=== PATIENT | male | born 1940 | race Two or more races ===

== ENCOUNTER → 2017-08-29 | Outpatient (CLI) | payer OTHER ==
[2017-08-29 09:02] LABS: Urine WBC None Seen /hpf (0 - 3)
[2017-08-29 09:15] LABS: Basophils # (auto) 0.1 uL; Basophils % (auto) 1.7 % (0.0-2.0); Eosinophils # (auto) 0.7 uL; Hematocrit 35.4 % (41.0-53.0); Hemoglobin 12.1 g/dL (13.5-17.5); Lymphocytes # (auto) 2.7 uL; Lymphocytes % (auto) 41.2 % (10.0-50.0); Mean Corpuscular Hgb Conc. 34.3 g/dL (32.0-36.0); Mean Corpuscular Volume 93.1 fL (80.0-100.0); Monocytes # (auto) 0.2 uL; Monocytes % (auto) 3.2 % (0.0-12.0); Neutrophils # (auto) 2.8 uL; Neutrophils % (auto) 42.9 % (37.0-80.0); Nucleated Red Blood Cells % 0.1 %; Platelet Count (auto) 201 10^3/uL (140-450); Red Cell Distribution Width 13.8 % (11.8-14.3); Urine Bacteria NONE SEEN /hpf (None Seen); Urine Blood Negative /uL (Negative); Urine Mucus FEW (None Seen); White Blood Cell 6.6 10^3/uL (4.4-10.8)
[2017-08-29 09:56] LABS: Alanine Aminotransferase 21 U/L (16-61); Alkaline Phosphatase 149 U/L (45-117); Anion Gap 8 (5-15); Aspartate Aminotransferase 11 U/L (15-37); BUN/Creatinine Ratio 13.9; Bilirubin, Total 0.9 mg/dL (0.2-1.0); Blood Urea Nitrogen 34 mg/dL (7-18); Calcium 9.3 mg/dL (8.5-10.1); Carbon Dioxide 26 mmol/L (21-32); Chloride 105 mmol/L (98-107); Cholesterol 358 mg/dL (< 200); GFR African American 33 mL/min; GFR Non-African American 28 mL/min; Glucose 117 mg/dL (74-106); HDL Cholesterol 46 mg/dL (40-59); Potassium 4.5 mmol/L (3.5-5.1); Sodium 139 mmol/L (136-145); Triglycerides 409 mg/dL (< 150)
== END | disposition home or self-care (01) ==
LOC: LAB 08:49
PROVIDERS: ATTEND Family Medicine
DX: E78.5 Hyperlipidemia, unspecified (principal)
CPT/HCPCS: 36415; 80053; 80061; 81001; 83036; 85025

== ENCOUNTER → 2017-09-26 | Outpatient (CLI) | payer OTHER ==
[2017-09-26 12:57] LABS: Basophils # (auto) 0 uL; Basophils % (auto) 0.7 % (0.0-2.0); Eosinophils # (auto) 0.3 uL; Eosinophils % (auto) 6.6 % (0.0-7.0); Hematocrit 33.5 % (41.0-53.0); Hemoglobin 11.3 g/dL (13.5-17.5); Lymphocytes # (auto) 1.4 uL; Lymphocytes % (auto) 35.7 % (10.0-50.0); Mean Corpuscular Hgb Conc. 33.6 g/dL (32.0-36.0); Mean Corpuscular Volume 92.1 fL (80.0-100.0); Monocytes # (auto) 0.2 uL; Monocytes % (auto) 4.4 % (0.0-12.0); Neutrophils % (auto) 52.6 % (37.0-80.0); Nucleated Red Blood Cells % 0.1 %; Platelet Count (auto) 215 10^3/uL (140-450); Red Blood Cells 3.64 10^6/uL (4.5-5.90); Red Cell Distribution Width 14.2 % (11.8-14.3); White Blood Cell 3.8 10^3/uL (4.4-10.8)
[2017-09-26 13:22] LABS: Albumin 3.9 g/dL (3.4-5.0); Potassium 4.3 mmol/L (3.5-5.1)
[2017-09-26 13:24] LABS: Bilirubin, Total 0.7 mg/dL (0.2-1.0); Total Protein 7.8 g/dL (6.4-8.2)
== END | disposition home or self-care (01) ==
LOC: LAB 11:47
PROVIDERS: ATTEND Nurse Practitioner
DX: E78.5 Hyperlipidemia, unspecified (principal); E86.0 Dehydration
CPT/HCPCS: 36415; 80053; 85025

== ENCOUNTER → 2018-03-15 | Outpatient (CLI) | payer OTHER ==
[~2018-03-15] MED LIST: AMLO10TA2 PO; ATOR20TA PO; LISI-285 PO; METO-158 PO; VENL75TA PO
[2018-03-15 09:33] LABS: Basophils # (auto) 0 uL; Basophils % (auto) 0.8 % (0.0-2.0); Eosinophils # (auto) 0.5 uL; Eosinophils % (auto) 12.2 % (0.0-7.0); Hematocrit 32.9 % (41.0-53.0); Hemoglobin 11.1 g/dL (13.5-17.5); Lymphocytes # (auto) 1.3 uL; Lymphocytes % (auto) 32.3 % (10.0-50.0); Mean Corpuscular Hemoglobin 31.1 pg (28.0-32.0); Mean Corpuscular Hgb Conc. 33.7 g/dL (32.0-36.0); Mean Corpuscular Volume 92.2 fL (80.0-100.0); Monocytes # (auto) 0.2 uL; Monocytes % (auto) 4.4 % (0.0-12.0); Neutrophils % (auto) 50.3 % (37.0-80.0); Nucleated Red Blood Cells % 0.1 %; Platelet Count (auto) 242 10^3/uL (140-450); Red Blood Cells 3.56 10^6/uL (4.5-5.90)
[2018-03-15 10:11] LABS: Albumin 3.5 g/dL (3.4-5.0); BUN/Creatinine Ratio 9.2; Bilirubin, Total 0.9 mg/dL (0.2-1.0); Calcium 8.7 mg/dL (8.5-10.1); Potassium 3.7 mmol/L (3.5-5.1); Total Protein 7.3 g/dL (6.4-8.2)
== END | disposition home or self-care (01) ==
LOC: LAB 09:10
PROVIDERS: ATTEND Nurse Practitioner
DX: E78.5 Hyperlipidemia, unspecified (principal)
CPT/HCPCS: 36415; 80053; 80061; 82306; 85025

== ENCOUNTER → 2018-05-04 | Outpatient (CLI) | payer OTHER ==
[~2018-05-04] MED LIST changes: +AMLO10TA12 PO; -AMLO10TA2 PO
== END | disposition home or self-care (01) ==
LOC: XY 11:10
PROVIDERS: ATTEND Nurse Practitioner
DX: I73.9 Peripheral vascular disease, unspecified (principal)
CPT/HCPCS: 93925

== ENCOUNTER 2018-05-20 07:03 | Inpatient (IN) | payer OTHER ==
[~2018-05-20] VITALS: Ht 177.8 cm; Wt 63.8 kg
[2018-05-20] MEDS ORDERED: FUROSEMIDE 20 MG/2 ML VIAL IV ONE ×2 (07:45→10:00)
[2018-05-20 08:00] LABS: Urine Bacteria FEW /hpf (None Seen); Urine Blood Negative /uL (Negative); Urine Mucus FEW (None Seen); Urine Specific Gravity 1.017 (1.001-1.035); Urine WBC 1 /hpf (0 - 3)
[2018-05-20 08:03] LABS: Basophils # (auto) 0 uL; Basophils % (auto) 1.2 % (0.0-2.0); Eosinophils # (auto) 0.2 uL; Eosinophils % (auto) 7.9 % (0.0-7.0); Hematocrit 34.6 % (41.0-53.0); Hemoglobin 11.5 g/dL (13.5-17.5); Lymphocytes # (auto) 0.7 uL; Lymphocytes % (auto) 25.8 % (10.0-50.0); Mean Corpuscular Hemoglobin 30.4 pg (28.0-32.0); Mean Corpuscular Hgb Conc. 33.1 g/dL (32.0-36.0); Mean Corpuscular Volume 91.8 fL (80.0-100.0); Monocytes # (auto) 0.1 uL; Monocytes % (auto) 3.8 % (0.0-12.0); Neutrophils # (auto) 1.8 uL; Neutrophils % (auto) 61.3 % (37.0-80.0); Nucleated Red Blood Cells % 0.1 %; Platelet Count (auto) 194 10^3/uL (140-450); Red Blood Cells 3.77 10^6/uL (4.5-5.90); Red Cell Distribution Width 14.9 % (11.8-14.3); White Blood Cell 2.9 10^3/uL (4.4-10.8)
[2018-05-20] MEDS ORDERED: cloNIDine HCL 0.1 MG TAB PO ONE (08:15)
[2018-05-20 08:23] LABS: Albumin 4.3 g/dL (3.4-5.0); Calcium 9.1 mg/dL (8.5-10.1); Potassium 3.1 mmol/L (3.5-5.1)
[2018-05-20 08:27] LABS: Bilirubin, Total 1.6 mg/dL (0.2-1.0); Total Protein 7.9 g/dL (6.4-8.2)
[2018-05-20] MEDS ORDERED: LABETALOL HCL 5 MG/ML ML 20ML VIAL IV ONE (10:00)
[2018-05-20] MEDS ORDERED: POTASSIUM EFFERVESENT TAB 25 MEQ PO ONE (10:30)
[2018-05-20] MEDS ORDERED: amLODIPine BESYLATE 5 MG TAB PO ONE (10:30)
[2018-05-20] MEDS ORDERED: DEXTROSE (50%) 50ML SYRG IV PRN (10:30)
[2018-05-20] MEDS ORDERED: VENLAFAXINE HCL 37.5MG TABLET PO ONE (10:30)
[2018-05-20] MEDS ORDERED: cefTRIAXone 1GM/50ML D5W 50 ML IV ONE (10:45)
[2018-05-20] MEDS ORDERED: ONDANSETRON HCL 4 MG/2 ML VIAL IV PRN (10:45)
[2018-05-20] MEDS ORDERED: ALUM & MAG HYDROX-SIMETH LIQ(MAALOX) 30 ML PO ONE (10:45)
[2018-05-20] MEDS ORDERED: ACETAMINOPHEN 325 MG TAB PO PRN (10:45)
[2018-05-20] MEDS ORDERED: ZOLPIDEM TARTRATE 5 MG TAB PO PRN (10:45)
[2018-05-20] MEDS ORDERED: MORPHINE SULFATE 4 MG/ML SYR/VIAL IV PRN ×2 (10:45)
[2018-05-20] MEDS ORDERED: NITROGLYCERIN 0.4 MG SL TAB SL PRN ×2 (10:45)
[2018-05-20] MEDS ORDERED: LORazepam 0.5 MG TAB PO PRN (10:45)
[2018-05-20 10:53] VITALS: BP 150/107
[2018-05-20] MEDS ORDERED: LABETALOL HCL 5 MG/ML ML 20ML VIAL IV PRN (11:00)
[2018-05-20] MEDS ORDERED: ENOXAPARIN SOD 60 MG/0.6 ML SYRINGE SC ONE (11:00)
[2018-05-20] MEDS ORDERED: cloNIDine HCL 0.1 MG TAB PO PRN (11:00)
[2018-05-20] MEDS: ALBUTEROL SULF 2.5 MG/0.5ML(0.5%) NEB SOLN NEB SCH ×3 (11:14→23:52)
[2018-05-20] MEDS ORDERED: LISINOPRIL 10 MG TAB PO ONE (11:15)
[2018-05-20] MEDS ORDERED: ASPirin 81 mg TAB PO ONE (11:15)
[2018-05-20] MEDS ORDERED: METOPROLOL TARTRATE 50 MG TAB PO ONE (11:15)
[2018-05-20] MEDS ORDERED: CLOPIDOGREL BISULFATE 75 MG TAB PO ONE (11:15)
[2018-05-20] MEDS: InsuLIN REG 1unit/0.01ml Soln (100units/ml) SC SCH ×3 (11:30→22:00)
[2018-05-20] MEDS: ACCU-CHEK COMFORT CURVE STRIP VI SCH ×3 (12:07→22:09)
[2018-05-20] MEDS: POTASSIUM CHL 20MEQ/100ML 100 ML IV SCH ×2 (12:07→13:00)
[2018-05-20] MEDS: SODIUM CHLOR 0.9% PF (SALINE LOCK) 10ML VIAL/SYR IV SCH ×2 (14:13→22:08)
[2018-05-20] MEDS: FUROSEMIDE 40 MG/4 ML VIAL IV SCH (18:05)
[2018-05-20 19:27] VITALS: BP 133/78
[2018-05-20 22:00] VITALS: BP 156/85
[2018-05-20] MEDS: ATORVASTATIN 20 MG TAB PO SCH (22:08)
[2018-05-20] MEDS: POTASSIUM CHL 10 Meq TABLET PO SCH (22:08)
[2018-05-20] MEDS: METOPROLOL TARTRATE 50 MG TAB PO SCH (22:09)
[2018-05-21] VITALS (11 sets, daily range): BP systolic 113–146; BP diastolic 63–89
[2018-05-21] MEDS: InsuLIN REG 1unit/0.01ml Soln (100units/ml) SC SCH (05:58)
[2018-05-21] MEDS: SODIUM CHLOR 0.9% PF (SALINE LOCK) 10ML VIAL/SYR IV SCH ×3 (05:58→21:04)
[2018-05-21] MEDS: ACCU-CHEK COMFORT CURVE STRIP VI SCH (05:58)
[2018-05-21] MEDS: FUROSEMIDE 40 MG/4 ML VIAL IV SCH ×2 (05:59→18:21)
[2018-05-21 06:14] LABS: Basophils # (auto) 0 uL; Eosinophils # (auto) 0.3 uL; Eosinophils % (auto) 11.9 % (0.0-7.0); Hemoglobin 10.4 g/dL (13.5-17.5); Lymphocytes # (auto) 0.8 uL; Lymphocytes % (auto) 32.1 % (10.0-50.0); Mean Corpuscular Hemoglobin 31.8 pg (28.0-32.0); Mean Corpuscular Hgb Conc. 34.8 g/dL (32.0-36.0); Mean Corpuscular Volume 91.4 fL (80.0-100.0); Monocytes # (auto) 0.1 uL; Monocytes % (auto) 5.2 % (0.0-12.0); Neutrophils # (auto) 1.2 uL; Neutrophils % (auto) 49.8 % (37.0-80.0); Platelet Count (auto) 180 10^3/uL (140-450); Red Blood Cells 3.28 10^6/uL (4.5-5.90); Red Cell Distribution Width 15.1 % (11.8-14.3); White Blood Cell 2.5 10^3/uL (4.4-10.8)
[2018-05-21 06:24] LABS: INR 1.05 (0.9-1.15); Prothrombin Time 11.2 sec (9.27-12.13)
[2018-05-21 06:29] LABS: Potassium 4.1 mmol/L (3.5-5.1)
[2018-05-21 06:39] LABS: Albumin 3.6 g/dL (3.4-5.0); BUN/Creatinine Ratio 14.7; Bilirubin, Total 1.8 mg/dL (0.2-1.0); Calcium 8.9 mg/dL (8.5-10.1); Magnesium 2.1 mg/dL (1.6-2.6); Total Protein 6.8 g/dL (6.4-8.2)
[2018-05-21] MEDS: ALBUTEROL SULF 2.5 MG/0.5ML(0.5%) NEB SOLN NEB SCH ×3 (07:22→19:46)
[2018-05-21] MEDS: cefTRIAXone 1GM/50ML D5W 50 ML IV SCH (08:42)
[2018-05-21] MEDS: VENLAFAXINE HCL 37.5MG TABLET PO SCH (09:05)
[2018-05-21] MEDS: POTASSIUM CHL 10 Meq TABLET PO SCH ×2 (09:05→21:04)
[2018-05-21] MEDS: ASPirin 81 mg TAB PO SCH (09:05)
[2018-05-21] MEDS: CLOPIDOGREL BISULFATE 75 MG TAB PO SCH (09:06)
[2018-05-21] MEDS: amLODIPine BESYLATE 5 MG TAB PO SCH (09:10)
[2018-05-21] MEDS: METOPROLOL TARTRATE 50 MG TAB PO SCH (09:10)
[2018-05-21] MEDS: LISINOPRIL 10 MG TAB PO SCH (09:11)
[2018-05-21] MEDS: DOCUSATE SOD 100 MG CAP PO SCH (09:13)
[2018-05-21] MEDS: ATORVASTATIN 20 MG TAB PO SCH (21:04)
[2018-05-22] VITALS (9 sets, daily range): BP systolic 121–148; BP diastolic 68–88
[2018-05-22] MEDS: ALBUTEROL SULF 2.5 MG/0.5ML(0.5%) NEB SOLN NEB SCH ×4 (00:35→19:54)
[2018-05-22 05:13] LABS: Basophils # (auto) 0 uL; Basophils % (auto) 0.6 % (0.0-2.0); Eosinophils # (auto) 0.3 uL; Eosinophils % (auto) 12.4 % (0.0-7.0); Hematocrit 31.9 % (41.0-53.0); Hemoglobin 10.8 g/dL (13.5-17.5); Lymphocytes # (auto) 0.9 uL; Lymphocytes % (auto) 34.1 % (10.0-50.0); Mean Corpuscular Hemoglobin 31.1 pg (28.0-32.0); Mean Corpuscular Volume 91.5 fL (80.0-100.0); Monocytes # (auto) 0.1 uL; Monocytes % (auto) 5.3 % (0.0-12.0); Neutrophils # (auto) 1.3 uL; Neutrophils % (auto) 47.6 % (37.0-80.0); Nucleated Red Blood Cells % 0.1 %; Platelet Count (auto) 190 10^3/uL (140-450); Red Blood Cells 3.49 10^6/uL (4.5-5.90); White Blood Cell 2.7 10^3/uL (4.4-10.8)
[2018-05-22 05:22] LABS: Potassium 4.1 mmol/L (3.5-5.1)
[2018-05-22 05:30] LABS: Albumin 3.7 g/dL (3.4-5.0); BUN/Creatinine Ratio 15.1; Bilirubin, Total 1.4 mg/dL (0.2-1.0); Total Protein 7.1 g/dL (6.4-8.2)
[2018-05-22] MEDS: SODIUM CHLOR 0.9% PF (SALINE LOCK) 10ML VIAL/SYR IV SCH ×3 (05:55→20:58)
[2018-05-22] MEDS: FUROSEMIDE 40 MG/4 ML VIAL IV SCH ×3 (05:55→18:13)
[2018-05-22] MEDS: cefTRIAXone 1GM/50ML D5W 50 ML IV SCH (09:09)
[2018-05-22] MEDS: CLOPIDOGREL BISULFATE 75 MG TAB PO SCH (09:38)
[2018-05-22] MEDS: POTASSIUM CHL 10 Meq TABLET PO SCH ×2 (09:39→20:57)
[2018-05-22] MEDS: amLODIPine BESYLATE 5 MG TAB PO SCH (09:39)
[2018-05-22] MEDS: DOCUSATE SOD 100 MG CAP PO SCH (09:39)
[2018-05-22] MEDS: ASPirin 81 mg TAB PO SCH (09:39)
[2018-05-22] MEDS: LISINOPRIL 10 MG TAB PO SCH (09:39)
[2018-05-22] MEDS: VENLAFAXINE HCL 37.5MG TABLET PO SCH (09:47)
[2018-05-22] MEDS ORDERED: fentaNYL CITRATE 100 MCG/2 ML VL ONE (13:52)
[2018-05-22] MEDS ORDERED: MIDAZOLAM HCL 1MG/1ML-2 ML VIAL ONE (13:52)
[2018-05-22] MEDS ORDERED: VERAPAMIL 2.5MG/ML INJ 2ML VIAL IV ONE (13:52)
[2018-05-22] MEDS ORDERED: ANGIOMAX 250 MG VIAL IV ONE (13:52)
[2018-05-22] MEDS ORDERED: IOHEXOL 350 MG/ML 100ML IJ ONE (13:53)
[2018-05-22] MEDS ORDERED: SODIUM CHL 0.9% 50 ML ONE (13:53)
[2018-05-22] MEDS ORDERED: LIDOCAINE 2%HCL (LOCAL ANESTH.) INJ 20ML MDV ONE (13:54)
[2018-05-22] MEDS ORDERED: IODIXANOL 320MG/ML 100ML BTL IV ONE ×3 (14:02→15:11)
[2018-05-22] MEDS ORDERED: EPINEPHrine HCL 1 MG/10 ML SYRG ONE (15:04)
[2018-05-22] MEDS ORDERED: ATROPINE SULF 1 MG/10ml SYR ONE (15:04)
[2018-05-22] MEDS: ATORVASTATIN 20 MG TAB PO SCH (20:58)
[2018-05-23] VITALS (7 sets, daily range): BP systolic 121–147; BP diastolic 72–83
[2018-05-23] MEDS: SODIUM CHLOR 0.9% PF (SALINE LOCK) 10ML VIAL/SYR IV SCH ×2 (06:14→13:36)
[2018-05-23] MEDS: FUROSEMIDE 40 MG/4 ML VIAL IV SCH (06:14)
[2018-05-23] MEDS: ALBUTEROL SULF 2.5 MG/0.5ML(0.5%) NEB SOLN NEB SCH ×3 (07:05→12:09)
[2018-05-23] MEDS: ASPirin 81 mg TAB PO SCH (10:25)
[2018-05-23] MEDS: cefTRIAXone 1GM/50ML D5W 50 ML IV SCH (10:25)
[2018-05-23] MEDS: LISINOPRIL 10 MG TAB PO SCH (10:27)
[2018-05-23] MEDS: CLOPIDOGREL BISULFATE 75 MG TAB PO SCH (10:27)
[2018-05-23] MEDS: POTASSIUM CHL 10 Meq TABLET PO SCH (10:27)
[2018-05-23] MEDS: amLODIPine BESYLATE 5 MG TAB PO SCH (10:27)
[2018-05-23] MEDS: DOCUSATE SOD 100 MG CAP PO SCH (10:27)
[2018-05-23] MEDS: VENLAFAXINE HCL 37.5MG TABLET PO SCH (10:39)
== END 2018-05-23 17:04 | disposition home or self-care (01) | DRG 246 ==
LOC: ER 07:03 → TELE 07:04 → TELE-CENTR 18:10 → ICU WEST 05-21 16:30 → TELE-CENTR 05-21 17:53 → ICU WEST 05-21 18:19 → DOU IN ICU 05-21 21:50
PROVIDERS: ADMIT Internal Medicine; ATTEND Family Medicine
PROC: 027135Z Dilation of Coronary Artery, Two Arteries with Two Drug-eluting Intraluminal Devices, Percutaneous Approach (ICD-10-PCS; principal; 2018-05-22)
PROC: 02703EZ Dilation of Coronary Artery, One Artery with Two Intraluminal Devices, Percutaneous Approach (ICD-10-PCS; 2018-05-22)
PROC: B2111ZZ Fluoroscopy of Multiple Coronary Arteries using Low Osmolar Contrast (ICD-10-PCS; 2018-05-22)
PROC: B2151ZZ Fluoroscopy of Left Heart using Low Osmolar Contrast (ICD-10-PCS; 2018-05-22)
PROC: 4A023N7 Measurement of Cardiac Sampling and Pressure, Left Heart, Percutaneous Approach (ICD-10-PCS; 2018-05-22)
PROC: B41D1ZZ Fluoroscopy of Aorta and Bilateral Lower Extremity Arteries using Low Osmolar Contrast (ICD-10-PCS; 2018-05-22)
DX: I21.4 Non-ST elevation (NSTEMI) myocardial infarction (principal); I50.43 Acute on chronic combined systolic (congestive) and diastolic (congestive) heart failure; N17.0 Acute kidney failure with tubular necrosis; I13.0 Hypertensive heart and chronic kidney disease with heart failure and stage 1 through stage 4 chronic kidney disease, or unspecified chronic kidney disease; J84.9 Interstitial pulmonary disease, unspecified; D63.8 Anemia in other chronic diseases classified elsewhere; E87.6 Hypokalemia; I35.0 Nonrheumatic aortic (valve) stenosis; F32.9 Major depressive disorder, single episode, unspecified; I44.1 Atrioventricular block, second degree; I25.10 Atherosclerotic heart disease of native coronary artery without angina pectoris; N18.3 Chronic kidney disease, stage 3 (moderate); T44.7X5A Adverse effect of beta-adrenoreceptor antagonists, initial encounter; I70.209 Unspecified atherosclerosis of native arteries of extremities, unspecified extremity; R73.9 Hyperglycemia, unspecified; E78.00 Pure hypercholesterolemia, unspecified; E78.5 Hyperlipidemia, unspecified; R00.1 Bradycardia, unspecified
CPT/HCPCS: 36247; 36415; 71045; 80053; 80061; 81001; 82962; 83036; 83735; 83880; 84443; 84484; 85025; 85610; 86850; 86900; 86901; 87081; 87086; 92928; 93005; 93458; 94640; 96361; 96374; 99152; A6257; C1874; G0378; J0696; J2250; J3480; Q9967

== ENCOUNTER → 2018-05-25 | Outpatient (CLI) | payer OTHER ==
[2018-05-25 09:34] LABS: Hematocrit 33.7 % (41.0-53.0); Hemoglobin 11.3 g/dL (13.5-17.5); Mean Corpuscular Hemoglobin 30.9 pg (28.0-32.0); Mean Corpuscular Hgb Conc. 33.5 g/dL (32.0-36.0); Mean Corpuscular Volume 92.2 fL (80.0-100.0); Platelet Count (auto) 192 10^3/uL (140-450); Red Blood Cells 3.66 10^6/uL (4.5-5.90); White Blood Cell 3.5 10^3/uL (4.4-10.8)
[2018-05-25 09:37] LABS: Band Neutrophils % (manual) 0; Basophils % (manual) 0 (0.0-2.0); Blast Cells 0; Metamyelocytes % 0; Myelocytes % 0; Promyelocytes % 0; Reactive Lymphocytes 0
[2018-05-25 09:38] LABS: Urine Bacteria NONE SEEN /hpf (None Seen); Urine Blood 1+ /uL (Negative); Urine WBC 4 /hpf (0 - 3)
[2018-05-25 09:50] LABS: BUN/Creatinine Ratio 12.2; Calcium 9.2 mg/dL (8.5-10.1); Potassium 4.3 mmol/L (3.5-5.1)
[2018-05-25 09:51] LABS: Eosinophils % (manual) 19 (0-7); Lymphocytes % (manual) 29 (10.0-50.0); Monocytes % (manual) 4 (0-12)
[2018-05-25 09:53] LABS: Bilirubin, Total 0.7 mg/dL (0.2-1.0); Total Protein 7.6 g/dL (6.4-8.2)
== END | disposition home or self-care (01) ==
LOC: LAB 09:12
PROVIDERS: ATTEND Nurse Practitioner
DX: E78.5 Hyperlipidemia, unspecified (principal); I10 Essential (primary) hypertension
CPT/HCPCS: 36415; 80053; 80061; 81001; 83036; 85007; 85027

== ENCOUNTER → 2018-06-02 | Outpatient (CLI) | payer OTHER, MEDICARE ==
[2018-06-02 09:51] LABS: Hematocrit 34.5 % (41.0-53.0); Hemoglobin 11.4 g/dL (13.5-17.5); Mean Corpuscular Hgb Conc. 32.9 g/dL (32.0-36.0); Mean Corpuscular Volume 91.4 fL (80.0-100.0); Platelet Count (auto) 229 10^3/uL (140-450); Red Blood Cells 3.78 10^6/uL (4.5-5.90); Red Cell Distribution Width 14.7 % (11.8-14.3); Urine Bacteria FEW /hpf (None Seen); Urine Blood Negative /uL (Negative); Urine Mucus FEW (None Seen); Urine Specific Gravity 1.007 (1.001-1.035); Urine WBC <1 /hpf (0 - 3); White Blood Cell 3.2 10^3/uL (4.4-10.8)
[2018-06-02 09:58] LABS: Band Neutrophils % (manual) 0; Basophils % (manual) 0 (0.0-2.0); Blast Cells 0; Metamyelocytes % 0; Myelocytes % 0; Promyelocytes % 0; Reactive Lymphocytes 0
[2018-06-02 10:11] LABS: Eosinophils % (manual) 19 (0-7); Lymphocytes % (manual) 52 (10.0-50.0); Monocytes % (manual) 1 (0-12)
[2018-06-02 10:13] LABS: Calcium 9.5 mg/dL (8.5-10.1); Potassium 3.6 mmol/L (3.5-5.1)
[2018-06-02 10:20] LABS: Albumin 4.3 g/dL (3.4-5.0); BUN/Creatinine Ratio 10.5; Bilirubin, Total 1.1 mg/dL (0.2-1.0)
== END | disposition home or self-care (01) ==
LOC: LAB 09:32
PROVIDERS: ATTEND Nurse Practitioner
DX: E78.5 Hyperlipidemia, unspecified (principal)
CPT/HCPCS: 36415; 80053; 80061; 81001; 85007; 85027

== ENCOUNTER → 2018-06-20 | Outpatient (CLI) | payer OTHER, MEDICARE ==
[2018-06-20 09:18] LABS: Urine WBC None Seen /hpf (0 - 3)
[2018-06-20 09:24] LABS: Basophils # (auto) 0 uL; Eosinophils # (auto) 0.5 uL; Hematocrit 33.6 % (41.0-53.0); Lymphocytes # (auto) 1.3 uL; Monocytes # (auto) 0.1 uL; Neutrophils # (auto) 1.5 uL; Nucleated Red Blood Cells % 0.1 %; White Blood Cell 3.5 10^3/uL (4.4-10.8)
[2018-06-20 09:31] LABS: Basophils % (auto) 0.6 % (0.0-2.0); Eosinophils % (auto) 15.1 % (0.0-7.0); Hemoglobin 11.1 g/dL (13.5-17.5); Lymphocytes % (auto) 38.7 % (10.0-50.0); Mean Corpuscular Hemoglobin 30.3 pg (28.0-32.0); Mean Corpuscular Hgb Conc. 33.1 g/dL (32.0-36.0); Mean Corpuscular Volume 91.5 fL (80.0-100.0); Monocytes % (auto) 2.4 % (0.0-12.0); Neutrophils % (auto) 43.2 % (37.0-80.0); Platelet Count (auto) 175 10^3/uL (140-450); Red Blood Cells 3.67 10^6/uL (4.5-5.90); Red Cell Distribution Width 15.2 % (11.8-14.3); Urine Bacteria NONE SEEN /hpf (None Seen); Urine Blood Negative /uL (Negative); Urine Specific Gravity 1.006 (1.001-1.035)
[2018-06-20 09:52] LABS: Albumin 3.8 g/dL (3.4-5.0); Calcium 9.3 mg/dL (8.5-10.1); Potassium 3.9 mmol/L (3.5-5.1)
[2018-06-20 09:57] LABS: BUN/Creatinine Ratio 12.7; Bilirubin, Total 1.7 mg/dL (0.2-1.0); Total Protein 7.2 g/dL (6.4-8.2)
== END | disposition home or self-care (01) ==
LOC: LAB 09:00
PROVIDERS: ATTEND Nurse Practitioner
DX: E78.5 Hyperlipidemia, unspecified (principal); I10 Essential (primary) hypertension; Z79.899 Other long term (current) drug therapy
CPT/HCPCS: 36415; 80053; 80061; 81001; 82306; 84443; 85025

== ENCOUNTER 2018-08-01 11:04 | Inpatient (IN) | payer OTHER | END 2018-08-04 15:30 | disposition home or self-care (01) | LOC: TELE-WESTW 08-04 12:51 → ER 11:04 → TELE 17:20 → TELE-WESTW 19:51 | DX: J44.1 Chronic obstructive pulmonary disease with (acute) exacerbation (principal); J13 Pneumonia due to Streptococcus pneumoniae; J96.20 Acute and chronic respiratory failure, unspecified whether with hypoxia or hypercapnia; I50.23 Acute on chronic systolic (congestive) heart failure; J44.0 Chronic obstructive pulmonary disease with (acute) lower respiratory infection ==

== ENCOUNTER → 2018-08-10 | Outpatient (CLI) | payer OTHER ==
[~2018-08-10] MED LIST changes: +APIX2.5T PO; +ASPI-231 PO; +CLOP75TA41 PO; +FUR20T PO; +LEVO500T21 PO; -LISI-285 PO; +POTA10TA51 PO
[2018-08-10 09:25] LABS: BUN/Creatinine Ratio 10.8; Calcium 9.2 mg/dL (8.5-10.1); Potassium 3.7 mmol/L (3.5-5.1)
== END | disposition home or self-care (01) ==
LOC: LAB 08:52
PROVIDERS: ATTEND Internal Medicine
DX: N17.9 Acute kidney failure, unspecified (principal); I11.0 Hypertensive heart disease with heart failure; I50.9 Heart failure, unspecified
CPT/HCPCS: 36415; 80048

== ENCOUNTER → 2018-08-24 | Outpatient (CLI) | payer OTHER | END | disposition home or self-care (01) | LOC: XYW 09:08 | PROVIDERS: ATTEND Nurse Practitioner | DX: I08.1 Rheumatic disorders of both mitral and tricuspid valves (principal); I27.20 Pulmonary hypertension, unspecified; I11.0 Hypertensive heart disease with heart failure; I50.9 Heart failure, unspecified; J44.9 Chronic obstructive pulmonary disease, unspecified; I48.91 Unspecified atrial fibrillation | CPT/HCPCS: 93306 ==

== ENCOUNTER → 2018-09-15 | Outpatient (CLI) | payer OTHER | END | disposition home or self-care (01) | LOC: RT 08:15 | PROVIDERS: ATTEND Internal Medicine Pulmonary Disease | DX: J44.9 Chronic obstructive pulmonary disease, unspecified (principal) | CPT/HCPCS: 94010; 94640 ==

== ENCOUNTER → 2018-12-06 | Outpatient (CLI) | payer OTHER ==
[2018-12-06 09:38] LABS: Urine WBC None Seen /hpf (0 - 3)
[2018-12-06 09:42] LABS: Hematocrit 31.2 % (41.0-53.0); Hemoglobin 10.4 g/dL (13.5-17.5); Mean Corpuscular Hemoglobin 29.3 pg (28.0-32.0); Mean Corpuscular Hgb Conc. 33.2 g/dL (32.0-36.0); Mean Corpuscular Volume 88.3 fL (80.0-100.0); Platelet Count (auto) 223 10^3/uL (140-450); Red Blood Cells 3.53 10^6/uL (4.5-5.90); Red Cell Distribution Width 19.8 % (11.8-14.3); White Blood Cell 3.2 10^3/uL (4.4-10.8)
[2018-12-06 09:48] LABS: Urine Bacteria NONE SEEN /hpf (None Seen); Urine Blood Negative /uL (Negative); Urine Specific Gravity 1.009 (1.001-1.035)
[2018-12-06 09:53] LABS: Band Neutrophils % (manual) 0; Basophils % (manual) 0 (0.0-2.0); Blast Cells 0; Metamyelocytes % 0; Myelocytes % 0; Promyelocytes % 0; Reactive Lymphocytes 0
[2018-12-06 10:04] LABS: Eosinophils % (manual) 13 (0-7); Lymphocytes % (manual) 34 (10.0-50.0); Monocytes % (manual) 2 (0-12)
[2018-12-06 10:24] LABS: Albumin 3.6 g/dL (3.4-5.0); Calcium 9.1 mg/dL (8.5-10.1)
[2018-12-06 10:29] LABS: Bilirubin, Total 1.7 mg/dL (0.2-1.0); Total Protein 7.5 g/dL (6.4-8.2)
== END | disposition home or self-care (01) ==
LOC: LAB 09:15
PROVIDERS: ATTEND Nurse Practitioner
DX: E78.5 Hyperlipidemia, unspecified (principal)
CPT/HCPCS: 36415; 80053; 80061; 81001; 84443; 85007; 85027

== ENCOUNTER → 2019-03-02 | Outpatient (CLI) | payer OTHER ==
[~2019-03-02] MED LIST changes: -AMLO10TA12 PO; +AMLO10TA13 PO
[2019-03-02 10:39] LABS: Basophils # (auto) 0 uL; Basophils % (auto) 0.7 % (0.0-2.0); Eosinophils # (auto) 0.2 uL; Eosinophils % (auto) 9.4 % (0.0-7.0); Hematocrit 29.6 % (41.0-53.0); Hemoglobin 9.9 g/dL (13.5-17.5); Lymphocytes # (auto) 0.7 uL; Lymphocytes % (auto) 33.3 % (10.0-50.0); Mean Corpuscular Hemoglobin 31.9 pg (28.0-32.0); Mean Corpuscular Hgb Conc. 33.5 g/dL (32.0-36.0); Mean Corpuscular Volume 95.4 fL (80.0-100.0); Monocytes # (auto) 0 uL; Monocytes % (auto) 2.4 % (0.0-12.0); Neutrophils # (auto) 1.1 uL; Neutrophils % (auto) 54.2 % (37.0-80.0); Nucleated Red Blood Cells % 0.2 %; Platelet Count (auto) 148 10^3/uL (140-450); Red Cell Distribution Width 15.7 % (11.8-14.3)
[2019-03-02 11:09] LABS: Potassium 4.3 mmol/L (3.5-5.1)
[2019-03-02 11:17] LABS: Albumin 3.7 g/dL (3.4-5.0); BUN/Creatinine Ratio 16.8; Bilirubin, Total 1.5 mg/dL (0.2-1.0); Calcium 8.8 mg/dL (8.5-10.1); Total Protein 7.3 g/dL (6.4-8.2)
== END | disposition home or self-care (01) ==
LOC: LAB 09:19
PROVIDERS: ATTEND Nurse Practitioner
DX: E78.5 Hyperlipidemia, unspecified (principal); I13.0 Hypertensive heart and chronic kidney disease with heart failure and stage 1 through stage 4 chronic kidney disease, or unspecified chronic kidney disease; I50.43 Acute on chronic combined systolic (congestive) and diastolic (congestive) heart failure; N18.3 Chronic kidney disease, stage 3 (moderate)
CPT/HCPCS: 36415; 80053; 80061; 83880; 85025

== ENCOUNTER 2019-03-29 11:05 | Inpatient (IN) | payer OTHER, MEDICAID ==
[2019-03-29] VITALS (9 sets, daily range): BP systolic 134–165; BP diastolic 63–76
[~2019-03-29] VITALS: Ht 180.3 cm; Wt 57.5 kg
[2019-03-29] MEDS ORDERED: FUROSEMIDE 40 MG/4 ML VIAL IV ONE (11:45)
[2019-03-29 12:27] LABS: Basophils # (auto) 0 uL; Eosinophils # (auto) 0.1 uL; Hemoglobin 9.5 g/dL (13.5-17.5); Lymphocytes # (auto) 0.4 uL; Monocytes # (auto) 0.1 uL; Red Cell Distribution Width 16.1 % (11.8-14.3)
[2019-03-29 12:30] LABS: Basophils % (auto) 0.6 % (0.0-2.0); Eosinophils % (auto) 4.5 % (0.0-7.0); Hematocrit 27.5 % (41.0-53.0); Lymphocytes % (auto) 22.7 % (10.0-50.0); Mean Corpuscular Hemoglobin 32.5 pg (28.0-32.0); Mean Corpuscular Hgb Conc. 34.5 g/dL (32.0-36.0); Monocytes % (auto) 3.4 % (0.0-12.0); Neutrophils # (auto) 1.2 uL; Neutrophils % (auto) 68.8 % (37.0-80.0); Nucleated Red Blood Cells % 0.3 %; Platelet Count (auto) 161 10^3/uL (140-450); Red Blood Cells 2.92 10^6/uL (4.5-5.90)
[2019-03-29 12:32] LABS: Albumin 3.8 g/dL (3.4-5.0); BUN/Creatinine Ratio 18.6; Calcium 8.9 mg/dL (8.5-10.1); Magnesium 2.6 mg/dL (1.6-2.6); Potassium 4.2 mmol/L (3.5-5.1)
[2019-03-29 12:35] LABS: Total Protein 7.7 g/dL (6.4-8.2)
[2019-03-29 12:42] LABS: White Blood Cell 1.7 10^3/uL (4.4-10.8)
[2019-03-29] MEDS ORDERED: TEMAZEPAM 15 MG CAP PO PRN (14:15)
[2019-03-29] MEDS ORDERED: MORPHINE SULF INJ 2 MG/ML SYRINGE 1ML IV PRN (14:15)
[2019-03-29] MEDS ORDERED: LACTULOSE 20Gm/30ML SOLN PO PRN (14:15)
[2019-03-29] MEDS ORDERED: MORPHINE SULFATE 4 MG/ML SYR/VIAL IV PRN (14:15)
[2019-03-29] MEDS ORDERED: PROMETHAZINE HCL 25 MG/ML 1ML IV PRN (14:15)
[2019-03-29] MEDS ORDERED: ACETAMINOPHEN 500 MG TAB PO PRN (14:15)
[2019-03-29] MEDS ORDERED: GLUCAGON HYDROCHLORIDE (RDNA) 1 MG VIAL IV ONE (14:15)
--- NOTE | 2019-03-29 17:30 | NUR ---
RECEIVED FROM ED C/C HTN, S.O. B BLE + 3 PITTING EDEMA BRADYCARDIC HR IN THE LOW 40'S TO LOW 50'S, S. O.B WITH EXERTION. DENIES ANY CP. BP IN THE 150'S, ORIENTED TO [place], CALL LIGHT WITHIN REACH, EDUCATED ON POC.
--- NOTE | 2019-03-29 17:43 | NUR ---
DR. MADISON ROUNDING ON PT. 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 PT VERBALIZED UNDERSTANDING. ORDERS RECEIVED FOR A MEDICAL SUPPORT SPECIALIST CONSULTATION AND A RENAL ULTRASOUND, AM LABS AND VERY SPECIFIC ORDERS OF PT'S CURRENT HOME MEDICATIONS, WHICH ONES TO HOLD AND WHICH ONE TO RE-START DURING THIS HOSPITALIZATION.
[2019-03-29] MEDS ORDERED: ALBUTEROL SULF 2.5 MG/0.5ML(0.5%) NEB SOLN NEB PRN (18:30)
--- NOTE | 2019-03-29 19:30 | NUR ---
Opening Shift Note Assumed care of patient, lying on bed, awake and alert, playing game on cellphone. Breathing even and nonlabored, on O2NC 4LPM, No S/S of distress/SOB. Denied pain. Saline lock 20G at left FA, flushed well. Due to void. Bed in low position, call light within reach, fall and safety precaution in place, all alarms are audible. Instructed on POC and to call for assist PRN, will continue to monitor for changes Q1hr and PRN, will do admission assessment later.
[2019-03-29] MEDS: ATORVASTATIN 20 MG TAB PO SCH (21:45)
--- NOTE | 2019-03-29 21:45 | NUR ---
Condition update V/S and condition stable. Pt passed clear light doreen urine 250ml. EKG shows bradycardia lowest 36, not sustained, asymptomatic. Finished interviewing admission questions at this time. Continue care.
[2019-03-29] MEDS: APIXABAN 2.5 MG TAB PO SCH (21:49)
[2019-03-29] MEDS: hydrALAZINE HCL 25 MG TAB PO SCH (21:50)
[2019-03-29] MEDS: ALBUTEROL SULF 2.5 MG/0.5ML(0.5%) NEB SOLN NEB SCH (21:58)
--- NOTE | 2019-03-29 22:53 | NUR ---
Done at 20.00pm Addendum: 03/29/19 at 2254 by Ignacio Sullivan RN Amended: Links added.
[2019-03-30] VITALS (11 sets, daily range): BP systolic 145–194; BP diastolic 65–87
--- NOTE | 2019-03-30 00:16 | NUR ---
Arrhythmia EKG showed sinus arrhythmia and switched between sinus bradycardia an JR. Pt sleeping, asymptomatic, SBP 140-150. 12 leads EKG obtained at this time. Continue care.
[2019-03-30] MEDS ORDERED: ATEN50TA PO (01:50)
[2019-03-30] MEDS ORDERED: NIFE60TA59 PO (01:50)
[2019-03-30] MEDS ORDERED: DIGO0.1238 PO (01:50)
--- NOTE | 2019-03-30 04:40 | NUR ---
Condition update Pt slept on and off due to LABs and v/s measurements. EKG stable in SA rhythm, first degree AV block with PVC's. High BP, will repeat and administer BP medicine from 6am as order if sustain. Internet Marketing Assistant at bedside for AM blood draw. Continue care.
--- NOTE | 2019-03-30 04:45 | NUR ---
EKG 12 obtained as MD pre-order.
--- NOTE | 2019-03-30 04:55 | NUR ---
Patient bathe/linen change Patient given partial bath. Skin integrity assessed for any changes, no open skin. Sacrum intact, no redness, z-guard applied to prevent skin breakdown. Complete linens changed. New underwear changed. Patient has mild SOB with exertion, no desaturation. Refused mouth care for now, equipment provided in the room including a denture cup. Continue care.
[2019-03-30] MEDS: hydrALAZINE HCL 25 MG TAB PO SCH ×3 (05:03→22:37)
[2019-03-30] MEDS: FUROSEMIDE 40 MG/4 ML VIAL IV SCH ×2 (05:04→17:46)
--- NOTE | 2019-03-30 05:10 | NUR ---
Hypertension SBP high 170's - 190's. Medication from 6am; Apresoline and Lasix, given to patient, will continue to monitor.
--- NOTE | 2019-03-30 05:40 | NUR ---
EKG changed EKG showed 2nd degree AV block type 1, on and off with 1 degree AV block,SR and SA. Asymptomatic, SBP 150's, no s/s of distress. 12 leads EKG obtained with failure to get the second degree rhythm in the 12 leads. The strips printed from bedside monitor. Continue care.
[2019-03-30 05:43] LABS: Basophils # (auto) 0 uL; Eosinophils # (auto) 0.2 uL; Eosinophils % (auto) 9.4 % (0.0-7.0); Hematocrit 29.9 % (41.0-53.0); Lymphocytes # (auto) 0.4 uL; Lymphocytes % (auto) 24.4 % (10.0-50.0); Mean Corpuscular Hemoglobin 31.6 pg (28.0-32.0); Mean Corpuscular Hgb Conc. 33.5 g/dL (32.0-36.0); Mean Corpuscular Volume 94.3 fL (80.0-100.0); Monocytes # (auto) 0.1 uL; Monocytes % (auto) 3.8 % (0.0-12.0); Neutrophils % (auto) 61.4 % (37.0-80.0); Nucleated Red Blood Cells % 0.2 %; Platelet Count (auto) 173 10^3/uL (140-450); Red Blood Cells 3.17 10^6/uL (4.5-5.90); Red Cell Distribution Width 16.3 % (11.8-14.3)
[2019-03-30 05:45] LABS: White Blood Cell 1.6 10^3/uL (4.4-10.8)
[2019-03-30 06:05] LABS: Albumin 3.8 g/dL (3.4-5.0); BUN/Creatinine Ratio 20.7; Calcium 8.9 mg/dL (8.5-10.1); Potassium 3.9 mmol/L (3.5-5.1)
[2019-03-30 06:11] LABS: Bilirubin, Total 1.8 mg/dL (0.2-1.0); Total Protein 7.6 g/dL (6.4-8.2)
[2019-03-30] MEDS: ALBUTEROL SULF 2.5 MG/0.5ML(0.5%) NEB SOLN NEB SCH ×3 (07:07→22:26)
--- NOTE | 2019-03-30 07:20 | NUR ---
REPORT RECEIVED FROM REHAB NURSE NURSE. PATIENT RESTING IN BED AT THIS TIME. RESPIRATIONS EVEN AND UNLABORED, NO SIGNS OF ACUTE DISTRESS NOTED. CALL LIGHT IN REACH, BED IN LOW POSITION. WILL CONTINUE TO MONITOR.
--- NOTE | 2019-03-30 08:12 | NUR ---
CHEST PAIN PATIENT COMPLAINS OF CHEST PAIN 3/10 EKG PERFORMED. PATIENT REFUSED MORPHINE STATING IT MAKES HIM FEEL WORSE. ADMINISTERED NITRO SUBLINGUAL PER PROTOCOL X2. PATIENT STATES, "PAIN IS BETTER NOW." WILL CONTINUE TO MONITOR.
[2019-03-30] MEDS: NITROGLYCERIN 0.4 MG SL TAB SL PRN ×2 (08:17→08:25)
--- NOTE | 2019-03-30 09:42 | NUR ---
PROCESS CONTROLLER AT BEDSIDE
--- NOTE | 2019-03-30 09:50 | NUR ---
DR LAL AT BEDSIDE TO ASSESS PATIENT AND DISCUSS PLAN OF CARE WITH PATIENT. PER MD PLACE MAGUIRE CATHETER FOR ACCURATE I&O. PER MD WILL DISCUSS PLAN OF CARE WITH DR MADISON. INFORMED OF PATIENTS RHYTHM CHANGE AND CHEST PAIN THIS AM.
[2019-03-30] MEDS ORDERED: ATENOLOL 25 MG TAB PO SCH (10:00)
[2019-03-30] MEDS: APIXABAN 2.5 MG TAB PO SCH ×2 (10:00→22:37)
[2019-03-30] MEDS: NITROGLYCERIN 0.2MG/HR TOPICAL PATCH TD SCH (10:00)
[2019-03-30] MEDS ORDERED: CLOPIDOGREL BISULFATE 75 MG TAB PO SCH (10:00)
[2019-03-30] MEDS: ASPirin-EC 81 mg tab PO SCH (10:00)
[2019-03-30] MEDS: POTASSIUM CHL 20 Meq TABLET PO SCH (10:00)
[2019-03-30] MEDS: NIFEdipine ER 30 MG TAB PO SCH (10:00)
[2019-03-30] MEDS ORDERED: amLODIPine BESYLATE 5 MG TAB PO SCH (10:00)
[2019-03-30] MEDS: CLOPIDOGREL BISULFATE 75 MG TAB PO SCH (10:00)
[2019-03-30] MEDS: PANTOPRAZOLE 40 MG TAB PO SCH (10:00)
--- NOTE | 2019-03-30 11:21 | NUR ---
Nutrition Consult/assessment Notes please see attached link for complete assessment Est. Needs IBW [id number] kcal (25-30 kcal/kg), 62-78 g protein (0.8-1.0 g/kg r/t elev RFT CKD). Will continue to monitor pertinent labs and reassess nutrient need prn Addendum: 03/30/19 at [address] Amended: Links added.
--- NOTE | 2019-03-30 12:04 | NUR ---
Ramos catheter insertion Patient assessed and determined to be in need of ramos catheter. Order obtained from MD. Patient educated on catheter and reason for insertion. All questions answered. Ramos catheter 16 [place] COUDE inserted with clean sterile technique, after 2 attempts. Patient tolerated well, minimal bleeding noted during insertion. No noted hematuria in unrine once inserted.
[2019-03-30] MEDS: VENLAFAXINE HCL 37.5mg XR cap PO SCH (12:09)
--- NOTE | 2019-03-30 12:14 | NUR ---
DR JESSE SHANKS RAMP FLIGHT ATTENDANT AT BEDSIDE TO ASSESS PATIENT AND DISCUSS PLAN OF CARE.
--- NOTE | 2019-03-30 12:55 | NUR ---
DR MADISON AT BEDSIDE TO ASSESS PATIENT AND DISCUSS PLAN OF CARE WITH PATIENT AND DAUGHTER. PER MD PATIENT TO PLAN FOR LEFT HEART CATH ON TUESDAY. PER DR MADISON ADMINISTER HYDRALAZINE IVP 20MG Q6PRN FOR BLOOD PRESSURE, ALSO ADMINISTER 1 AMP GLUCAGON IVP FOR SUSTAINED HEART BLOCK WITH BRADYCARDIA. PER MD IF PATIENT SUSTAINS HEART BLOCK THROUGHOUT THE WEEKEND CALL DR DUMONT TO PLACE TEMPORARY PACEMAKER. DR Eloina ANTUNEZ AT BEDSIDE WELL. ALL ORDERS NOTED IN CHART.
[2019-03-30] MEDS ORDERED: GLUCAGON HYDROCHLORIDE (RDNA) 1 MG VIAL IV ONE (14:15)
[2019-03-30] MEDS ORDERED: hydrALAZINE HCL 20 MG/ML VL IV PRN (14:15)
--- NOTE | 2019-03-30 14:41 | NUR ---
PATIENT TAKEN TO CT PER MD ORDER VIA BEDS CONNECTED TO PORTABLE MONITOR ACCOMPANIED BY RADIOLOGY NURSE. NO DISTRESS NOTED AT THIS TIME.
--- NOTE | 2019-03-30 14:43 | NUR ---
ORDER CLARIFICATION WITH JESSE SHANKS YARD ASSISTANT FOR GLUCAGON ORDER. PER YARD ASSISTANT ADMINISTER Q4H PRN NEEDED FOR SUSTAINED HEART BLOCK WITH BRADYCARDIA. ALL ORDERS NOTED IN CHART.
[2019-03-30] MEDS ORDERED: GLUCAGON HYDROCHLORIDE (RDNA) 1 MG VIAL IV PRN (14:45)
--- NOTE | 2019-03-30 14:53 | NUR ---
PATIENT BCK FROM CT VIA BED CONNECTED TO BEDSIDE MONITORS. NO SIGNS OF DISTRESS NOTED. WILL CONTINUE TO MONITOR.
--- NOTE | 2019-03-30 15:50 | NUR ---
DR COLON AT BEDSIDE TO ASSESS PATIENT AND DISCUSS PLAN OF CARE WITH PATIENT. NO NEW ORDERS AT THIS TIME.
[2019-03-30] MEDS: ATORVASTATIN 20 MG TAB PO SCH (22:37)
[2019-03-31 04:00] VITALS: BP 144/73
[2019-03-31 05:02] LABS: Potassium 3.8 mmol/L (3.5-5.1)
[2019-03-31 05:04] LABS: % Iron Saturation 18.1 % (20-55)
[2019-03-31 05:06] LABS: BUN/Creatinine Ratio 21.1; Calcium 8.6 mg/dL (8.5-10.1)
--- NOTE | 2019-03-31 05:19 | NUR ---
At 0018 and 0156 pt went into possible 3rd degree HB. And again at 0515 possible 3rd degree HB. Stable. HR currently 56, will continue to monitor. Pt denies pain or any distress.
[2019-03-31] MEDS: FUROSEMIDE 40 MG/4 ML VIAL IV SCH (06:32)
[2019-03-31] MEDS: hydrALAZINE HCL 25 MG TAB PO SCH ×3 (06:32→22:43)
[2019-03-31] MEDS: ALBUTEROL SULF 2.5 MG/0.5ML(0.5%) NEB SOLN NEB SCH ×3 (06:32→21:54)
--- NOTE | 2019-03-31 06:58 | NUR ---
Pt remains stable. Denies pain. IV patent, Lasix given.
[2019-03-31 08:00] VITALS: BP 144/84
--- NOTE | 2019-03-31 08:00 | NUR ---
Opening Shift Note Assumed care of patient, awake and alert. No S/S of distress/SOB or pain. Patient saturation 94% on 4LPM oxygen via nasal cannula. See interventions for complete assessment. Bed locked on low position, side rails up x2, bed alarms on at all times, call mercado within reach, instructed on POC and to call for assist PRN, will continue to monitor for changes Q1hr and PRN.
--- NOTE | 2019-03-31 09:31 | NUR ---
Dr Santos at bedside, updated on patient's status. Informed of 5.[address] report and edema and pleural effusion per Chest xray report. verbalized understanding. Patient seen and examined. Will carry out new orders.
--- NOTE | 2019-03-31 09:49 | NUR ---
Spoke to Dr Santos over the phone, clarified order for thoracentesis today and whether to discontinue patient's blood thinners. states "I meant to order chest ultrasound to quantify the pleural effusion not thoracentesis, continue giving blood thinners". Orders read back and verified. Will carry out.
[2019-03-31] MEDS: ASPirin-EC 81 mg tab PO SCH (10:08)
[2019-03-31] MEDS: cefTRIAXone 1GM/50ML D5W 50 ML IV SCH (10:08)
[2019-03-31] MEDS: PANTOPRAZOLE 40 MG TAB PO SCH (10:09)
[2019-03-31] MEDS: POTASSIUM CHL 20 Meq TABLET PO SCH (10:09)
[2019-03-31] MEDS: VENLAFAXINE HCL 37.5mg XR cap PO SCH (10:09)
[2019-03-31] MEDS: APIXABAN 2.5 MG TAB PO SCH ×2 (10:09→22:43)
[2019-03-31] MEDS: CLOPIDOGREL BISULFATE 75 MG TAB PO SCH (10:10)
[2019-03-31] MEDS: NITROGLYCERIN 0.2MG/HR TOPICAL PATCH TD SCH (10:10)
[2019-03-31] MEDS: NIFEdipine ER 30 MG TAB PO SCH (10:11)
--- NOTE | 2019-03-31 10:46 | NUR ---
Dr Johnson at bedside, updated on patient's status. Patient seen and examined. Will carry out new orders.
[2019-03-31] MEDS: AZITHROMYCIN 500MG/ 250ML 250 ML IV SCH (11:13)
[2019-03-31] MEDS: NITROGLYCERIN 0.4 MG SL TAB SL PRN (11:14)
--- NOTE | 2019-03-31 11:38 | NUR ---
Urine sample sent to lab
[2019-03-31 11:49] LABS: Protein, Urine 24.2 mg/dL (0.0-11.9)
[2019-03-31 12:00] VITALS: BP 135/85
--- NOTE | 2019-03-31 14:00 | NUR ---
Patient assisted to bedside commode with Noelle [employer] EXECUTIVE [employer]OUD SALES, fall precautions in place. Patient tolerated well.
[2019-03-31 16:00] VITALS: BP 127/64
--- NOTE | 2019-03-31 18:34 | NUR ---
Dr Azul at bedside, updated on patient's status. Informed of 5.5cm abdominal aortic aneurysm per Abdominal CT. Patient seen and examined. No new orders at this time.
[2019-03-31 20:00] VITALS: BP 127/61
--- NOTE | 2019-03-31 20:45 | NUR ---
Pt is stable at this time. Resting comfortably in bed. No S/S of distress and denies chest pain. Will continue to monitor.
[2019-03-31] MEDS: ATORVASTATIN 20 MG TAB PO SCH (22:42)
[2019-04-01] VITALS (7 sets, daily range): BP systolic 138–151; BP diastolic 67–82
[2019-04-01] MEDS: ALBUTEROL SULF 2.5 MG/0.5ML(0.5%) NEB SOLN NEB SCH ×3 (05:46→22:00)
[2019-04-01 06:15] LABS: Potassium 3.9 mmol/L (3.5-5.1)
[2019-04-01 06:21] LABS: BUN/Creatinine Ratio 24.6; Calcium 8.5 mg/dL (8.5-10.1)
[2019-04-01 06:22] LABS: Albumin 3.2 g/dL (3.4-5.0); Bilirubin, Total 1.3 mg/dL (0.2-1.0); Total Protein 6.7 g/dL (6.4-8.2)
[2019-04-01] MEDS: FUROSEMIDE 40 MG/4 ML VIAL IV SCH (06:58)
[2019-04-01] MEDS: hydrALAZINE HCL 25 MG TAB PO SCH ×3 (06:58→23:21)
--- NOTE | 2019-04-01 07:30 | NUR ---
RECEIVED PATIENT SITTING UP IN BED, AWAKEN BY NAME BEING CALLED, A/O TIMES 4, O2 AT 4L BY N/C, MAGUIRE TO GRAVITY, 20G SL TO THE LFA FLUSHED AND PATENT, DENIES PAIN AND SOB,
--- NOTE | 2019-04-01 08:30 | NUR ---
SAT UP IN BED AND ATE HIS BREAKFAST, NO HELP NEEDED
[2019-04-01] MEDS: cefTRIAXone 1GM/50ML D5W 50 ML IV SCH (08:55)
[2019-04-01] MEDS: NITROGLYCERIN 0.4 MG SL TAB SL PRN ×2 (09:01→09:45)
--- NOTE | 2019-04-01 09:07 | NUR ---
PATIENT COMPLAINING OF A WEIRD FEELING IN HIS CHEST STATED HE HAD THE SAME FEELING YESTERDAY AND THEY GAVE HIM NITROGLYCERIN S/L, PER RUBBER GOODS TESTER NURSE SHE STATED THAT HE GOT NITRO S/L FOR HIS CHEST DISCOMFORT, NITRO GIVEN HR85 AND B/P 136/81, ASK PATIETN IF HE WAS NAUSEATED AND STATED HE DIDN'T KNOW FOR SURE
--- NOTE | 2019-04-01 09:15 | NUR ---
STATES HE IS FEELING A LITTLE BETTER
--- NOTE | 2019-04-01 09:25 | NUR ---
DR Eloina ANTUNEZ INTO SEE THE PATIENT AND SPOKE WITH HIM ABOUT HAVING THE PARACENTESIS ON TUESDAY
--- NOTE | 2019-04-01 09:30 | NUR ---
DR ANDRADE INTO SEE THE PATIENT AND NO NEW ORDERS
--- NOTE | 2019-04-01 09:45 | NUR ---
STATES HIS WEIRD FEELING IS COMING BACK, ASK IS HE WAS NAUSEATED , STATED NO JUST FELT TIGHT IN HIS COLLAR BONE, GAVE NITRO HR 86 136/76,
--- NOTE | 2019-04-01 09:55 | NUR ---
EKG BEING DONE, COMPARED TO THE ONE YESTERDAY NO CHANGE, STATES FEELING BETTER, TOLD HIM I WAS GOING TO GIVE HIM MORPHINE AND HE REFUSED, STATED HE DOESN'T LIKE THE WAY IT MAKES HIM FEEL
[2019-04-01] MEDS: CLOPIDOGREL BISULFATE 75 MG TAB PO SCH (10:17)
[2019-04-01] MEDS: AZITHROMYCIN 500MG/ 250ML 250 ML IV SCH (10:17)
[2019-04-01] MEDS: PANTOPRAZOLE 40 MG TAB PO SCH (10:17)
[2019-04-01] MEDS: ASPirin-EC 81 mg tab PO SCH (10:17)
--- NOTE | 2019-04-01 10:20 | NUR ---
STATES HE FEELS BETTER BUT WANTS ANOTHER NITRO S/L, ASK THE PATIENT IF HE WAS HAVING A SHARP PAIN STATED NO IT WAS JUST A ACHE RIGHT HERE, NITRO GIVEN PATIENT REQUEST, HR89- 312/26
[2019-04-01] MEDS: NITROGLYCERIN 0.2MG/HR TOPICAL PATCH TD SCH (10:22)
[2019-04-01] MEDS: POTASSIUM CHL 20 Meq TABLET PO SCH (10:23)
--- NOTE | 2019-04-01 10:23 | NUR ---
EXPLAIN MORNING MEDICATIONS TO THE PATIENT REGARDING THE DOSAGE, USAGE, AND THE SIDE EFFECTS, ASK IF HE WANTED SOMETHING FOR NAUSEA STATED NO, STATES HE WAS JUST A LITTLE NAUSEATED, ASK HIM EXACTLY WHERE HIS PAIN WAS AND SHOWED ME ON HIS CHEST, PRESSED ON HIS CHEST AND HE STATED THAT HURTS, EXPRESS TO HIM THAT IT IS USUALLY NOT PAIN FROM HIS HEART IF I CAN PRESS ON HIS CHEST AND IT HURTS, EXPRESS TO THE PATIENT THAT I WOULD GIVE HIM ULTRAM AND SEE IF IT HELPS, ULTRAM GIVEN FOR PAIN 10/08
[2019-04-01] MEDS: APIXABAN 2.5 MG TAB PO SCH ×2 (10:24→23:20)
[2019-04-01] MEDS: NIFEdipine ER 30 MG TAB PO SCH (10:24)
[2019-04-01] MEDS: VENLAFAXINE HCL 37.5mg XR cap PO SCH (10:28)
[2019-04-01] MEDS: traMADol HCL 50 MG TAB PO PRN ×2 (10:32→23:21)
--- NOTE | 2019-04-01 10:50 | NUR ---
SOME BLEEDING FROM THE NOSE, AFTER BLOWING AND PICKING, STATES HE HAD A BIG PIECE OF DRIED BLOOD, IN HIS NOSE WHICH HE GOT OUT AND NOW ITS BLEEDING A LITTLE, PLACED ICE PACK TO THE NOSE, EXPRESS TO EMERALD THAT IS COULD BE FROM THE BLOOD THINNERS HE IS TAKING, STATED "YES THAT IS RIGHT"
--- NOTE | 2019-04-01 11:15 | NUR ---
NO BLEEDING SEEN AT THIS TIME AND PATIENT NOT HOLDING ICE PACK TO THE NOSE
--- NOTE | 2019-04-01 11:30 | NUR ---
PATIETN APPEARS TO BE SLEEPING, EYES CLOSED
--- NOTE | 2019-04-01 12:15 | NUR ---
PATIENT FOR VS SIGNS AND STATES HE FEELS MUCH BETTER, HE HAS BEEN ABLE TO REST
--- NOTE | 2019-04-01 12:45 | NUR ---
SAT UP IN BED AND ATE HIS LUNCH NO HELP NEEDED. STATES HE IS BETTER
--- NOTE | 2019-04-01 13:50 | NUR ---
PT REFUSED MED NEB AT THIS TIME. NO SOB NOTED. PT ON 3L NC WITH SPO2 93%, HR 72, RR 16 WITH CLEAR/DIMINISHED BS. PT COMPLAINING OF NOSE IRRITATION. NC CONNECTED TO HUMIDIFIER. HE SAID HE WILL TAKE MED NEB AT 1800.
--- NOTE | 2019-04-01 14:15 | NUR ---
WOKE PATIENT UP TO GIVE HIM HIS MEDICATION STATES HE IS RESTING GOOD AT THIS TIME, NO PAIN
--- NOTE | 2019-04-01 15:30 | NUR ---
APPEARS TO SLEEPING, EYES CLOSED
--- NOTE | 2019-04-01 16:26 | NUR ---
SITTING UP IN THE BED WITH EYES CLOSED APPEAR TO BE DOZING ON AND OFF, WILL OPEN HIS EYES WHEN YOU WALK INTO THE ROOM
--- NOTE | 2019-04-01 17:35 | NUR ---
PATIENT SITTING UP IN THE BED, TALKING ON THE CELL PHONE, NO COMPLAINTS
--- NOTE | 2019-04-01 18:18 | NUR ---
SITTING UP IN BED WATCHING TV, DENIES PAIN , O2 AT 4L BY N/C, A/O TIMES 4, MAGUIRE TO GRAVITY, SALINE LOCK TO THE LFA 20G FLUSHED AND PATIENT, FRIEND IN TO VISIT WITH THE PATIENT, WILL CONTINUE TO MONITOR AND GIVE REPORT TO THE NEXT SHIFT
--- NOTE | 2019-04-01 22:02 | NUR ---
PT REFUSED MED NEB TX AT THIS TIME. SPO2 92% ON 6L NC, HR 70, RR 20. PT STATES: "WE'LL DO IT IN THE MORNING." NO S/S OF RESPIRATORY DISTRESS. WILL CONTINUE WITH NEXT SCHEDULED TX.
[2019-04-01] MEDS: ATORVASTATIN 20 MG TAB PO SCH (23:21)
[2019-04-02] VITALS: BP 151/79
[2019-04-02 03:45] VITALS: BP 145/77
[2019-04-02 05:49] LABS: Albumin 3.5 g/dL (3.4-5.0); BUN/Creatinine Ratio 23.8; Potassium 4.4 mmol/L (3.5-5.1)
[2019-04-02 06:00] LABS: Bilirubin, Total 1.5 mg/dL (0.2-1.0); Total Protein 7.3 g/dL (6.4-8.2)
[2019-04-02] MEDS: ALBUTEROL SULF 2.5 MG/0.5ML(0.5%) NEB SOLN NEB SCH ×3 (06:12→22:03)
--- NOTE | 2019-04-02 07:30 | NUR ---
RECEIVED PATIENT SITTING UP IN THE BED, A/O TIMES 4, O2 AT 4L BY N/C, BUT O2 SAT AT 87%, STATES HE IS HAVING A LITTLE TROUBLE TAKING A DEEP, EXPRESS TO HIM THAT THE NOC SHIFT NURSE GAVE HIM LASIX AND ALSO PLACED A CALLED TO RT, MAGUIRE TO GRAVITY, SCD' OFF AT THIS TIME, DENIES PAIN, LFA 20G SALEIN LOCKED FLUSHED AND PATENT,
[2019-04-02 07:35] VITALS: BP 146/75
[2019-04-02] MEDS: traMADol HCL 50 MG TAB PO PRN (07:44)
[2019-04-02] MEDS: FUROSEMIDE 40 MG/4 ML VIAL IV SCH (07:45)
[2019-04-02] MEDS: hydrALAZINE HCL 25 MG TAB PO SCH ×3 (07:45→22:11)
--- NOTE | 2019-04-02 08:00 | NUR ---
Pt coughed more this shift than the previous nights. States this morning he feels like he is having a harder time breathing. Also noted more frequent desat episodes. Paged RT. Communicated with AM shift nurse and RT and decided to try Oxymizer. Ultram given at midnight and this morning in effort to prevent chest wall pain episodes that he is having daily after breakfast. Report given, care endorsed.
--- NOTE | 2019-04-02 08:15 | NUR ---
DR ANTUNEZ IN TO SEE THE PATIENT AND TALK TO HIM ABOUT HIS CODE STATUS, PATIENT STATES HE WANTS TO BE INTUBATED IF HE STOPS BREATHING,
--- NOTE | 2019-04-02 08:20 | NUR ---
PLACED ON 8L OXYMIZER BY RT
--- NOTE | 2019-04-02 08:30 | NUR ---
REFUSED TO EAT HIS BREAKFAST
[2019-04-02] MEDS: cefTRIAXone 1GM/50ML D5W 50 ML IV SCH (08:40)
--- NOTE | 2019-04-02 09:00 | NUR ---
PATIENT O2 SAT GOING UP AND DOWN LOWEST IS 85% EXPRESS TO THE PATIENT THAT HE NEEDS TO TRY AND RELAX, HE IS
--- NOTE | 2019-04-02 09:35 | NUR ---
SITTING UP IN THE BED WATCHNG THE MONITOR TO SEE HIS O2 SAT
[2019-04-02] MEDS: APIXABAN 2.5 MG TAB PO SCH ×2 (10:00→22:00)
[2019-04-02] MEDS ORDERED: DIGOXIN 0.25 MG TAB PO SCH (10:00)
[2019-04-02] MEDS: PANTOPRAZOLE 40 MG TAB PO SCH (10:12)
[2019-04-02] MEDS: CLOPIDOGREL BISULFATE 75 MG TAB PO SCH (10:12)
[2019-04-02] MEDS: ASPirin-EC 81 mg tab PO SCH (10:12)
[2019-04-02] MEDS: POTASSIUM CHL 20 Meq TABLET PO SCH (10:12)
--- NOTE | 2019-04-02 10:12 | NUR ---
SPOKE WITH DR ANTUNEZ AND STATED TO HOLD THE ELIQUIS DUE TO POSSIBLE THORACENTESIS TOMORROW
[2019-04-02] MEDS: AZITHROMYCIN 500MG/ 250ML 250 ML IV SCH (10:13)
[2019-04-02] MEDS: NIFEdipine ER 30 MG TAB PO SCH (10:13)
[2019-04-02] MEDS: NITROGLYCERIN 0.2MG/HR TOPICAL PATCH TD SCH (10:14)
--- NOTE | 2019-04-02 10:15 | NUR ---
EXPLAIN MEDICATIONS TO THE PATIETN REGARDING THE DOSAGE, USAGE, AND THE SIDE EFFECTS, STATES HE UNDERSTANDS AN D MEDS GIVEN ORDERED
[2019-04-02] MEDS: VENLAFAXINE HCL 37.5mg XR cap PO SCH (10:16)
--- NOTE | 2019-04-02 10:30 | NUR ---
PATIENT APPEARS TO BE MORE ANXIOUS AND TAKING THE O2 OFF AND ON AND STATING ITS GETTING HARDER FOR HIM TO BREATH, RT AWARE
--- NOTE | 2019-04-02 10:35 | NUR ---
Respiratory note: PLACED PT ON 10L SIMPLE MASK, SPO2 NOW 92%. PT IS SHOWING INCREASED WOB. SPOKE TO PT ABOUT BIPAP AND HOW IT COULD HELP WITH HIS WOB. HE REFUSED IT AT THIS TIME STATING HE WANTS NO LIFE SUPPORT AND WOULD PREFER TO USE THE SIMPLE MASK FOR NOW. I INFORMED HIM IF AT ANYTIME HE DECIDED THE WOB WAS TOO MUCH WE COULD USE HIS PRN BIPAP ORDER TO ASSIST HIM. ANNA STERLING IS AWARE OF CURRENT CONVERSATION AND PTS DESIRE TO NOT BE INTUBATED AND GO ON LIFE SUPPORT.
--- NOTE | 2019-04-02 10:55 | NUR ---
DAUGHTER CALLED TO INQUIRE ABOUT THE PATIENT AND STATES SHE HAD JUST TALK TO HIM AND THAT HE IS VERY ANXIOUS, EXPRESS TO HER THAT I WAS GOING TO GET HIM SOMETHING TO HELP HIM RELAX,
[2019-04-02 11:05] LABS: INR 1.09 (0.9-1.15); Partial Thromboplastin Time 32.7 sec (23.64-32.05)
--- NOTE | 2019-04-02 11:10 | NUR ---
SPOKE WITH DR ANTUNEZ WHO STATED TO GIVE THE PATIENT XANAX
[2019-04-02] MEDS: ALPRAZolam 0.5 MG TAB PO PRN (11:34)
--- NOTE | 2019-04-02 11:35 | NUR ---
XANAX GIVEN FOR PATIENTS ANXIETY
[2019-04-02 11:40] VITALS: BP 148/81
--- NOTE | 2019-04-02 12:26 | NUR ---
SITTING UP IN BED DR ANTUNEZ BACK INTO TALK WITH THE PATIENT AND HE STATED HE DOESN'T WANT TO BE PLACED ON LIFE SUPPORT, NO COMPRESSIONS OR ANYTHING TO KEEP HIM ALIVE ARTIFICIALLY, PATIENT CHANGED TO DNR, SPUTUM COLLECTED AND SENT TO THE LAB
--- NOTE | 2019-04-02 12:43 | NUR ---
MAINE SITTING UP IN THE BED APPEARS TO BE MORE REAL WITH EYES CLOSED, RR 19, O2 SAT 92%, NOT PULLING HIS MASK UP AND DOWN
--- NOTE | 2019-04-02 13:00 | NUR ---
REFUSED TO EAT HIS LUNCH STATES HE WANTED A TURKEY SANDWICH, WHICH WAS GIVEN
--- NOTE | 2019-04-02 14:10 | NUR ---
EYES CLOSED APPEARS TO BE SLEEPING
--- NOTE | 2019-04-02 14:50 | NUR ---
RT IN GIVING A BREATHING TREATMENT
--- NOTE | 2019-04-02 15:10 | NUR ---
SITTING UP BED TRYING TO EAT HIS SANDWICH, TAKING OFF HIS MASK, EXPLAIN TO HIM THAT HE STILL NEEDS TO WEAR THE MASK
--- NOTE | 2019-04-02 15:28 | NUR ---
DAUGHTER HERE TO VISIT
[2019-04-02 15:40] VITALS: BP 133/88
--- NOTE | 2019-04-02 16:25 | NUR ---
SITTING UP IN THE BED TALKING TO HIS DAUGHTER O2 SAT 89 % AND ABOVE
--- NOTE | 2019-04-02 17:31 | NUR ---
SITTING UP IN BED O2 AT 91 %, PATIENT STILL ON THE SIMPLE MASK
--- NOTE | 2019-04-02 18:37 | NUR ---
WOKE PATIENT UP TO EAT HIS DINNER, O2 BY THE SIMPLE MASK AT 9L, CHANGED TO OXYMIZER AT 12L SO THAT HE COULD AT, MAGUIRE TO GRAVITY, DENIES PAIN, SCD'S OFF AT THIS TIME, SALINE LOCK TO THE LFA, INTACT ,FLUSHED AND PATENT, WILL CONTINUE TO MONITOR AND GIVE REPORT TO THE NEXT SHIFT
--- NOTE | 2019-04-02 19:05 | NUR ---
OPENING SHIFT RECEIVED REPORT FROM DAY SHIFT RN. ASSUMED CARE OF PATIENT. PATIENT IN BED RESTING WITH NO SIGNS OR SYMPTOMS OF SOB, PAIN OR DISTRESS. CURRENTLY ON OXYMIZER 8L 02, 02 SAT - 90%. LEFT ANTECUBITAL IV - CLEAN/DRY/INTACT. REPOSITIONED FOR COMFORT. MAGUIRE HUNG TO GRAVITY ON BED RAIL. UPDATED PATIENT ON PLAN OF CARE. BED IN LOWEST POSITION, SIDE RAILS UP X2, CALL LIGHT WITHIN REACH. WILL CONTINUE TO MONITOR.
[2019-04-02 20:00] VITALS: BP 136/78
[2019-04-02] MEDS: ATORVASTATIN 20 MG TAB PO SCH (22:11)
[2019-04-03] VITALS (18 sets, daily range): BP systolic 112–149; BP diastolic 60–90
[2019-04-03 05:46] LABS: Basophils # (auto) 0 uL; Basophils % (auto) 0.4 % (0.0-2.0); Eosinophils # (auto) 0.1 uL; Eosinophils % (auto) 6.9 % (0.0-7.0); Hematocrit 23.3 % (41.0-53.0); Hemoglobin 8.1 g/dL (13.5-17.5); Lymphocytes # (auto) 0.4 uL; Mean Corpuscular Hgb Conc. 34.6 g/dL (32.0-36.0); Monocytes # (auto) 0.1 uL; Monocytes % (auto) 3.1 % (0.0-12.0); Neutrophils # (auto) 1.2 uL
[2019-04-03 05:49] LABS: Lymphocytes % (auto) 21.6 % (10.0-50.0); Mean Corpuscular Hemoglobin 32.3 pg (28.0-32.0); Mean Corpuscular Volume 93.3 fL (80.0-100.0); Platelet Count (auto) 171 10^3/uL (140-450); Red Cell Distribution Width 16.2 % (11.8-14.3)
[2019-04-03 05:56] LABS: White Blood Cell 1.7 10^3/uL (4.4-10.8)
[2019-04-03] MEDS: ALBUTEROL SULF 2.5 MG/0.5ML(0.5%) NEB SOLN NEB SCH ×3 (05:58→23:09)
[2019-04-03 06:04] LABS: Potassium 4.2 mmol/L (3.5-5.1)
[2019-04-03 06:10] LABS: Albumin 3.3 g/dL (3.4-5.0); BUN/Creatinine Ratio 25.3; Calcium 8.9 mg/dL (8.5-10.1)
[2019-04-03 06:22] LABS: Total Protein 6.8 g/dL (6.4-8.2)
[2019-04-03] MEDS: hydrALAZINE HCL 25 MG TAB PO SCH ×3 (06:47→22:10)
[2019-04-03] MEDS: FUROSEMIDE 40 MG/4 ML VIAL IV SCH (06:47)
[2019-04-03] MEDS: ALPRAZolam 0.5 MG TAB PO PRN (07:33)
--- NOTE | 2019-04-03 07:40 | NUR ---
Opening Shift Note Assumed care of patient, awake and alert, patient pressed the call light stated that his hands are shaking, wants somethings for anxiety. No S/S of distress/SOB or pain, on Oxymizer 9 LPM, O2 saturation around 86-90%. Instructed on POC and to call for assist PRN, will continue to monitor for changes Q1hr and PRN.
[2019-04-03] MEDS: MORPHINE SULF INJ 2 MG/ML SYRINGE 1ML IV PRN (09:13)
[2019-04-03] MEDS: cefTRIAXone 1GM/50ML D5W 50 ML IV SCH (09:13)
[2019-04-03] MEDS: POTASSIUM CHL 20 Meq TABLET PO SCH (09:14)
[2019-04-03] MEDS: PANTOPRAZOLE 40 MG TAB PO SCH (09:14)
[2019-04-03] MEDS: ASPirin-EC 81 mg tab PO SCH (09:14)
[2019-04-03] MEDS: VENLAFAXINE HCL 37.5mg XR cap PO SCH (09:14)
[2019-04-03] MEDS: NITROGLYCERIN 0.2MG/HR TOPICAL PATCH TD SCH (09:15)
[2019-04-03] MEDS: CLOPIDOGREL BISULFATE 75 MG TAB PO SCH (09:15)
[2019-04-03] MEDS: NIFEdipine ER 30 MG TAB PO SCH (09:15)
[2019-04-03] MEDS: APIXABAN 2.5 MG TAB PO SCH (09:15)
[2019-04-03] MEDS: AZITHROMYCIN 500MG/ 250ML 250 ML IV SCH (09:16)
--- NOTE | 2019-04-03 09:50 | NUR ---
Patient lying on the bed, stated that feeling better after medications given, able to rest, no hand shaking. Will continue to monitor and care.
--- NOTE | 2019-04-03 10:00 | NUR ---
Dr. Santos at the bedside, seen patient this morning, plan of care discussed with patient, will wait Dr. Butterfield to see patient and call his daughter for the plan of care. Received order to Hold Plavix and Eliquis for Thoracentesis possible this . MD made aware that didn't give Plavix this morning last dose is yesterday, and didn't give Eliquis this morning last dose is 04/01/19 at 10 pm. Will continue to monitor and care.
--- NOTE | 2019-04-03 10:30 | NUR ---
Dr. Johnson at the bedside, seen patient at this time, plan of care discussed with patient, received new orders, patient made aware.
--- NOTE | 2019-04-03 10:34 | NUR ---
Sent urine sample to Lab at this time.
[2019-04-03 11:35] LABS: Protein, Urine 55.7 mg/dL (0.0-11.9)
[2019-04-03 11:41] LABS: Urine Bacteria NONE SEEN /hpf (None Seen); Urine Blood 2+ /uL (Negative); Urine Hyaline Cast FEW /lpf (0 - 2); Urine Mucus FEW (None Seen); Urine Specific Gravity 1.009 (1.001-1.035); Urine WBC 26 /hpf (0 - 3)
--- NOTE | 2019-04-03 12:00 | NUR ---
Patient lying on the bed, sleeping at this time, his O2 saturation 77-78% with Oxymizer 9LPM, changed to Simple mask 10 LPM, O2 saturation around 90-92%, will continue to monitor and care. Repositioning with elevated HOB, patient refused to turn on his side.
[2019-04-03 13:12] LABS: Hepatitis B Surface Antibody Negative
[2019-04-03 13:21] LABS: Ferritin 390.4 ng/mL (10-322)
[2019-04-03 13:22] LABS: Folate (Folic Acid) 8.26 ng/mL (5.38-24)
--- NOTE | 2019-04-03 14:00 | NUR ---
Patient still sleeping, woke up sometimes and when he took the mask off, his O2 saturation went to 80-84% when room air. Patient still has the Simple mask 10 LPM, O2 saturation around 88-91%, will continue to monitor and care.
--- NOTE | 2019-04-03 14:45 | NUR ---
Cierra GARCES for Dr. Butterfield seen and examined patient at this time, plan of care discussed with patient, patient made aware that plan to do Left and Right heart cath tomorrow.
--- NOTE | 2019-04-03 16:45 | NUR ---
Patient able to rest, no complaining of anxiety noted, still doesn't want to eat anything at this time. His O2 saturation 82-87% with Simple mask 10 LPM, paged RT for desaturation.
[2019-04-03 17:19] LABS: Hepatitis B Surface Antigen Negative (Negative)
[2019-04-03 17:20] LABS: Hepatitis C Antibody Negative (Negative)
--- NOTE | 2019-04-03 18:01 | NUR ---
Patient sitting up, watching TV at this time, no complaining of SOB, still on Simple mask, his O2 saturation 86-89%, will continue to monitor and care. Talked to his daughter on the phone, she made aware that plan to have Right and left heart cath tomorrow.
--- NOTE | 2019-04-03 19:14 | NUR ---
OPENING SHIFT RECEIVED REPORT FROM DAY SHIFT RN. ASSUMED CARE OF PATIENT. PATIENT IN BED RESTING WATCHING TV WITH NO SIGNS OR SYMPTOMS OF SOB, PAIN OR DISTRESS. CURRENTLY ON 9L OXYMIZER, 02 SAT - 90%. REPOSITIONED FOR COMFORT. UPDATED PATIENT ON PLAN OF CARE. LEFT FOREARM IV - CLEAN/DRY/INTACT. MAGUIRE HUNG TO GRAVITY ON BED RAIL. BED IN LOWEST POSITION, SIDE RAILS UP X 2, CALL LIGHT WITHIN REACH. WILL CONTINUE TO MONITOR.
[2019-04-03] MEDS: ATORVASTATIN 20 MG TAB PO SCH (22:10)
[2019-04-04] VITALS (11 sets, daily range): BP systolic 110–130; BP diastolic 62–81
[2019-04-04] MEDS: SODIUM CHLORIDE 0.9% 1,000 ML IV SCH ×3 (00:20→21:59)
[2019-04-04] MEDS: MORPHINE SULF INJ 2 MG/ML SYRINGE 1ML IV PRN (02:57)
--- NOTE | 2019-04-04 04:25 | NUR ---
MORNING CARE PERFORMED MORNING CARE WITH CHG WIPES AND WASH CLOTHS TO THE FACE. PARTIAL LINEN CHANGE AND GOWN CHANGED. SKIN REASSESSED AT THIS TIME. REPOSITIONED FOR COMFORT. BED IN LOWEST POSITION, SIDE RAILS UPX2, CALL LIGHT WITHIN REACH.
[2019-04-04] MEDS: ALPRAZolam 0.5 MG TAB PO PRN (04:41)
--- NOTE | 2019-04-04 04:49 | NUR ---
IV INSERTION RIGHT FOREARM IV 20G PLACED. PATIENT TOLERATED WELL.
[2019-04-04 05:44] LABS: Basophils # (auto) 0 uL; Lymphocytes # (auto) 0.2 uL; Monocytes # (auto) 0.1 uL; Neutrophils # (auto) 1.5 uL
[2019-04-04 05:46] LABS: Basophils % (auto) 0.5 % (0.0-2.0); Eosinophils # (auto) 0 uL; Eosinophils % (auto) 2.8 % (0.0-7.0); Hemoglobin 8.6 g/dL (13.5-17.5); Lymphocytes % (auto) 9.9 % (10.0-50.0); Mean Corpuscular Hemoglobin 32.2 pg (28.0-32.0); Mean Corpuscular Hgb Conc. 34.4 g/dL (32.0-36.0); Mean Corpuscular Volume 93.4 fL (80.0-100.0); Neutrophils % (auto) 83.8 % (37.0-80.0); Nucleated Red Blood Cells % 0.2 %; Platelet Count (auto) 205 10^3/uL (140-450); Red Blood Cells 2.68 10^6/uL (4.5-5.90); Red Cell Distribution Width 16.6 % (11.8-14.3)
[2019-04-04 06:01] LABS: INR 1.05 (0.9-1.15); Partial Thromboplastin Time 30.8 sec (23.64-32.05)
[2019-04-04 06:08] LABS: Albumin 3.7 g/dL (3.4-5.0); BUN/Creatinine Ratio 26.5; Potassium 4.1 mmol/L (3.5-5.1)
[2019-04-04] MEDS: ALBUTEROL SULF 2.5 MG/0.5ML(0.5%) NEB SOLN NEB SCH ×3 (06:12→21:58)
[2019-04-04 06:21] LABS: Bilirubin, Total 1.2 mg/dL (0.2-1.0); Total Protein 7.5 g/dL (6.4-8.2)
[2019-04-04 06:32] LABS: White Blood Cell 1.8 10^3/uL (4.4-10.8)
[2019-04-04] MEDS: hydrALAZINE HCL 25 MG TAB PO SCH ×3 (06:33→21:59)
[2019-04-04] MEDS: FUROSEMIDE 40 MG/4 ML VIAL IV SCH (06:33)
--- NOTE | 2019-04-04 08:00 | NUR ---
Opening Shift Note Assumed care of patient, awake and alert. No S/S of distress/SOB or pain, on Oxymizer 12 LPM, O2 saturation 88-92%. Instructed on POC and to call for assist PRN, will continue to monitor for changes Q1hr and PRN. Patient went to the bedside commode with standby assist.
[2019-04-04] MEDS: cefTRIAXone 1GM/50ML D5W 50 ML IV SCH (08:13)
[2019-04-04] MEDS: AZITHROMYCIN 500MG/ 250ML 250 ML IV SCH (09:11)
--- NOTE | 2019-04-04 09:30 | NUR ---
His daughter at the bedside, patient sitting up on the bed, talking to his daughter.
[2019-04-04] MEDS: NIFEdipine ER 30 MG TAB PO SCH (09:51)
[2019-04-04] MEDS: PANTOPRAZOLE 40 MG TAB PO SCH (09:51)
[2019-04-04] MEDS: ASPirin-EC 81 mg tab PO SCH (09:51)
[2019-04-04] MEDS: POTASSIUM CHL 20 Meq TABLET PO SCH (09:51)
[2019-04-04] MEDS: NITROGLYCERIN 0.2MG/HR TOPICAL PATCH TD SCH (09:51)
[2019-04-04] MEDS: VENLAFAXINE HCL 37.5mg XR cap PO SCH (09:52)
--- NOTE | 2019-04-04 10:20 | NUR ---
Dr. Johnson at the bedside, Addendum: 04/04/19 at 1042 by VALENTIN CHINO RN RN Seen patient at his time, received new orders, patient and his daughter made aware.
[2019-04-04] MEDS ORDERED: LIDOCAINE 2%HCL (LOCAL ANESTH.) INJ 20ML MDV ONE (10:24)
--- NOTE | 2019-04-04 10:25 | NUR ---
Sent urine sample to Lab.
[2019-04-04] MEDS: BUMETANIDE 2.5mg/10ml (0.25 mg/ml) INJ IV SCH ×2 (10:36→17:48)
--- NOTE | 2019-04-04 10:40 | NUR ---
Cierra ELIGIBILITY SERVICES REPRESENTATIVE at the bedside, made aware about the labs and EKG short run VT 6 beats, will continue to monitor and care.
--- NOTE | 2019-04-04 10:45 | NUR ---
Patient was taken to energy systems laboratory director at this time.
[2019-04-04] MEDS ORDERED: ANGIOMAX 250 MG VIAL IV ONE (10:57)
[2019-04-04] MEDS ORDERED: fentaNYL CITRATE 100 MCG/2 ML VL ONE (10:57)
[2019-04-04] MEDS ORDERED: SODIUM CHL 0.9% 0 ML ONE (10:57)
[2019-04-04] MEDS ORDERED: MIDAZOLAM HCL 1MG/1ML-2 ML VIAL ONE (10:57)
--- NOTE | 2019-04-04 11:22 | NUR ---
Nutrition Follow-up Notes Wt.: 103.1 kg Pt was off the floor when rounded this am. per records pt to have LHC today. pt is currently NPO for procedure Est. Needs IBW [id number] kcal (25-30 kcal/kg), 62-78 g protein (0.8-1.0 g/kg r/t elev RFT CKD). Will continue to monitor pertinent labs and reassess nutrient need prn Labs: BUN 62 H, CREAT 2.34 H, NAHEED 1.2 H, GLU 115 H Skin: Eliazar scale 16, mod risk skin intact per RN doc. GI: Pt had 1 BM yesterday per credit officer. PES: Increased nutrient needs r/t chronic current medical condition aeb t`s underwt with nausea and low PO Altered nutrition related lab values r/t current chronic medial condition aeb eleV RFT, hyperbil Will continue to monitor NPO status/PO intake, skin status, pertinent labs and weight trend. F/u in 3-5 days. Rec.: 1.) consider to resume diet with renal specific 70 gm protein 2 gm na . 2) consider Glucerna 1 carton bid. 3) continue assistance wth meals. 4) continue current plan of care
[2019-04-04] MEDS ORDERED: HEPARIN SODIUM (PORCINE) 5000 UNITS/ML 1ML VIAL ONE (11:25)
[2019-04-04] MEDS ORDERED: IODIXANOL 320MG/ML 100ML BTL IV ONE (11:28)
[2019-04-04] MEDS ORDERED: hydrALAZINE HCL 20 MG/ML VL ONE (11:54)
--- NOTE | 2019-04-04 12:40 | NUR ---
Patient came back from the laborer syrup machine, puncture site at the right groin, cover with gauze and tegaderm, no active bleeding, will continue to monitor. Patient made aware that able to sit up after 6pm.
--- NOTE | 2019-04-04 13:40 | NUR ---
Called and talked to Dr. Santos about the report from slab installer and plan to transfer to high level of care ([place]).
--- NOTE | 2019-04-04 14:17 | NUR ---
Respiratory note: SCHEDULED MED NEB TX NOT GIVEN. PT IS TRYING TO NAP AFTER COMING BACK FROM HOUSING COUNSELOR. FAMILY AT BEDSIDE. NO RESP DISTRESS NOTED. PT STATED HE WILL PAGE RT IF TX IS NEEDED BEFORE NEXT TX IS DUE.
[2019-04-04] MEDS: IRON SUCROSE COMPLEX 200 MG in SODIUM CHL 0.9% 100 ML IV SCH (14:51)
--- NOTE | 2019-04-04 15:41 | NUR ---
TRANSFER [facility] auth for [facility] is [id number]. [facility] on will call. Auth for procedure only at [facility] is [id number]. [facility] is on will call and transfer packet faxed to [facility] sabiha [phone]
--- NOTE | 2019-04-04 16:07 | NUR ---
[facility] is on will call as ALS status transportation. [facility] faxed for auths , attempted to call [facility] but only answering machines.
--- NOTE | 2019-04-04 17:04 | NUR ---
No active bleeding or hematoma at right groin noted, patient had orange juice, no N/V noted. No complaining of chest pain or SOB, vital sign stable, SBP 110-120 mmHg, HR 75-85/min, O2 saturation 88-92% with Oxymizer 12 LPM, will continue plan of care and monitor.
--- NOTE | 2019-04-04 19:17 | NUR ---
Received a call from transfer nurse from [facility], patient is accepted by Dr. Hernandez, still pending for the bed.
--- NOTE | 2019-04-04 20:00 | NUR ---
SHIFT OPENING NOTE RECEIVED PATIENT AWAKE, ALERT AND ORIENTED X4. NO SOB OR DISTRESS NOTED. ON 12 L OXYMIZER WITH POX 90%. RIGHT GROIN DRESSING C/D/I. NO BLEEDING OR HEMATOMA NOTED. NORMAL PULSES IN THE RIGHT LOWER EXTREMITY. NO PAIN NOTED. PHYSICAL ASSESSMENT COMPLETED, SEE INTERVENTIONS. INSTRUCTED ON POC AND TO CALL FOR ASSIST NEEDED. BED IS IN THE LOWEST POSITION WITH SIDE RAILS UP X2. CALL LIGHT IS WITHIN REACH.
--- NOTE | 2019-04-04 20:47 | NUR ---
UPDATED DAUGHTER LINNEA ON PATIENTS STATUS AND POC
[2019-04-04] MEDS: ATORVASTATIN 20 MG TAB PO SCH (21:59)
[2019-04-05] VITALS (7 sets, daily range): BP systolic 119–139; BP diastolic 71–85
--- NOTE | 2019-04-05 02:00 | NUR ---
ROUNDS PATIENT IS LAYING IN BED SLEEPING. NO SOB, DISTRESS OR PAIN NOTED. WILL CONTINUE TO CLOSELY MONITOR.
[2019-04-05] MEDS: hydrALAZINE HCL 25 MG TAB PO SCH ×3 (05:33→20:55)
[2019-04-05] MEDS: BUMETANIDE 2.5mg/10ml (0.25 mg/ml) INJ IV SCH ×2 (05:33→17:58)
[2019-04-05] MEDS: ALBUTEROL SULF 2.5 MG/0.5ML(0.5%) NEB SOLN NEB SCH ×3 (06:50→21:48)
--- NOTE | 2019-04-05 06:55 | NUR ---
END OF SHIFT PATIENT QUIETLY LAYING IN BED SLEEPING. NO SOB, DISTRESS OR PAIN NOTED. ON 12 L OXYMIZER. WILL GIVE REPORT AND ENDORSE CARE TO THE DAY SHIFT RN.
--- NOTE | 2019-04-05 07:30 | NUR ---
RECEIVED PATIENT SEMI FOWLERS IN BED, A/O TIMES 4, O2 AT 12L BY THE OXYMIZER, SALINE LOCK TO THE RAC 20G FLUSHED AND PATENT, NS INFUSING INTO THE LFA AT 61.5ML/HR BY THE IV PUMP, MAGUIRE TO GRAVITY, NO COMPLAINTS OF PAIN, AWARE THAT HE IS GOING FOR TRANSFER TO [facility], BUT EXPLAIN TO HIM THAT THERE IS NO BED YET
--- NOTE | 2019-04-05 07:40 | NUR ---
DR ANTUNEZ IN TO SEE THE PATIENT
--- NOTE | 2019-04-05 08:30 | NUR ---
REMINDED THE PATIENT THAT HE IS NPO UNTIL AFTER HE HAS THE THORACENTESIS, STATES I'M NOT HUNGRY ANY WAY
[2019-04-05 09:00] LABS: Albumin 2.6 g/dL (3.4-5.0); Anion Gap 11 (5-15); Blood Urea Nitrogen 64 mg/dL (7-18); Calcium 8.5 mg/dL (8.5-10.1); Carbon Dioxide 18 mmol/L (21-32); Chloride 103 mmol/L (98-107); Glucose 122 mg/dL (74-106); Potassium 3.7 mmol/L (3.5-5.1); Sodium 132 mmol/L (136-145)
[2019-04-05 09:02] LABS: BUN/Creatinine Ratio 25.9; GFR African American 33 mL/min; GFR Non-African American 27 mL/min
--- NOTE | 2019-04-05 09:02 | NUR ---
THORACENTESIS DONE AT BEDSIDE BY DR RAZA. 900ML OF YOLI FLUID REMOVED. FLUID SENT TO THE LAB. PT TOLERATED PROCEDURE WELL.
[2019-04-05 09:06] LABS: Alanine Aminotransferase 20 U/L (16-61); Alkaline Phosphatase 288 U/L (45-117); Aspartate Aminotransferase 33 U/L (15-37); Total Protein 6.9 g/dL (6.4-8.2)
[2019-04-05] MEDS: cefTRIAXone 1GM/50ML D5W 50 ML IV SCH (09:09)
[2019-04-05 09:22] LABS: Basophils # (auto) 0 uL; Basophils % (auto) 0.3 % (0.0-2.0); Eosinophils # (auto) 0.1 uL; Eosinophils % (auto) 3.9 % (0.0-7.0); Hematocrit 22.8 % (41.0-53.0); Hemoglobin 7.3 g/dL (13.5-17.5); Lymphocytes # (auto) 0.3 uL; Mean Corpuscular Hemoglobin 31.1 pg (28.0-32.0); Mean Corpuscular Hgb Conc. 31.8 g/dL (32.0-36.0); Mean Corpuscular Volume 97.7 fL (80.0-100.0); Monocytes # (auto) 0.1 uL; Neutrophils # (auto) 1.5 uL; Neutrophils % (auto) 77.8 % (37.0-80.0); Platelet Count (auto) 183 10^3/uL (140-450); Red Blood Cells 2.34 10^6/uL (4.5-5.90); Red Cell Distribution Width 17.2 % (11.8-14.3)
--- NOTE | 2019-04-05 09:30 | NUR ---
EXPLAIN MEDICATIONS TO THE PATIETN REGARDING THE DOSAGE,USAGE AND THE SIDE EFFECTS, VERBALIZED THAT HE UNDERSTOOD AND MEDS GIVEN
[2019-04-05] MEDS: POTASSIUM CHL 20 Meq TABLET PO SCH (09:33)
[2019-04-05] MEDS: ASPirin-EC 81 mg tab PO SCH (09:33)
[2019-04-05] MEDS: VENLAFAXINE HCL 37.5mg XR cap PO SCH (09:33)
[2019-04-05] MEDS: PANTOPRAZOLE 40 MG TAB PO SCH (09:34)
[2019-04-05] MEDS: NIFEdipine ER 30 MG TAB PO SCH (09:34)
[2019-04-05] MEDS: NITROGLYCERIN 0.2MG/HR TOPICAL PATCH TD SCH (09:38)
[2019-04-05] MEDS ORDERED: CYANOCOBALAMIN 500 MCG TAB PO SCH (10:00)
[2019-04-05] MEDS ORDERED: FOLIC ACID 1 MG TAB PO SCH (10:00)
--- NOTE | 2019-04-05 10:26 | NUR ---
Called [facility] and Lashawn transfer RN stated they need to get another accepting Computer Terminal Operator since the previous MD stated she was at capacity. Lashawn will be reaching out to Dr. Tirado .
[2019-04-05] MEDS: AZITHROMYCIN 500MG/ 250ML 250 ML IV SCH (10:34)
--- NOTE | 2019-04-05 10:40 | NUR ---
DAUGHTER IN TO SEE THE PATIENT AND BROUGHT HIM A DONUT
--- NOTE | 2019-04-05 11:30 | NUR ---
TALKING TO HIS DAUGHTER WHO IS AT THE BEDSIDE, NO COMPLAINTS
[2019-04-05] MEDS ORDERED: BUMETANIDE 1mg/4ml VIAL (0.25mg/ml) IV ONE (12:45)
[2019-04-05] MEDS: IRON SUCROSE COMPLEX 200 MG in SODIUM CHL 0.9% 100 ML IV SCH (12:58)
--- NOTE | 2019-04-05 13:00 | NUR ---
DOESN'T WANT TO EAT HIS LUNCH STATES HE IS FULL FROM THE DONUT
--- NOTE | 2019-04-05 13:32 | NUR ---
assessment Patient is a 79 year old male who is alert and oriented. Prior to admission patient lived home with friends and functioned independently. Patient is aware of his order to transfer to higher level of care. Patient agrees to transfer. Patient informed me he has home 02, and a scooter for home use. Patient informed me his PCP is Dr Murillo. I informed patient he has a right to privacy. Patient does not have a POA and advanced directive. I have offered patient information on POA and advanced directives. I informed the patient the advantages and benefits of having an Advanced Directive. Patient verbalized understanding and agreed to discharge plan for transfer. Addendum: 04/06/19 at 1335 by Nicky WILLAMS Amended: Links added.
--- NOTE | 2019-04-05 14:00 | NUR ---
STATES HE IS JUST SLEEPING ON AND OFF
--- NOTE | 2019-04-05 15:53 | NUR ---
SITTING UP IN BED, WATCHING TV AND DOZING ON AND OFF,
--- NOTE | 2019-04-05 17:00 | NUR ---
SITTING UP IN BED, TALKING ON THE PHONE
--- NOTE | 2019-04-05 18:37 | NUR ---
SITTING UP IN THE BED, ASKING FOR SLEEPING PILLS EXPRESS TO HIM THAT HE CAN'T HAVE IT UNTIL TONIGHT, WE DON'T GIVE SLEEPING PILLS DURING THE DAY, STATES HE JUST WANTS TO BE KNOCKED OUT, BECAUSE THERE IS NOTHING TO DO HERE, EXPRESS TO HIM THAT IT WAS HOSPITAL, STATED THAT HE COULD GET UP AND SIT IN THE CHAIR BUT HE SAYS NO, HE DOESN'T WANT TO DO THAT, NS INFUSING INTO THE LFA AT 61.5ML/HR BY THE IV PUMP INTO THE LFA AND SALINE LOCK TO THE RAC 20G FLUSHED AND PATENT, MAGUIRE TO GRAVITY, NO COMPLAINTS OF PAIN, NO CALL FROM [facility] REGARDING A BED, FOR THE PATIENT, WILL CONTINUE TO MONITOR AND GIVE REPORT TO THE NEXT SHIFT
[2019-04-05] MEDS: ALPRAZolam 0.5 MG TAB PO PRN (19:52)
--- NOTE | 2019-04-05 20:00 | NUR ---
SHIFT OPENING NOTE RECEIVED PATIENT AWAKE, ALERT AND ORIENTED X4. NO SOB, DISTRESS OR PAIN NOTED. REPORTS ANXIETY. WILL MEDICATE. S/P THORACENTESIS TODAY. ON 12 L OXYMIZER POX 93%. NS AT 61.5ML/H. PHYSICAL ASSESSMENT COMPLETED, SEE INTERVENTIONS. STILL AWAITING BED AT [facility]. INSTRUCTED ON POC AND TO CALL FOR ASSIST NEEDED. BED IS IN THE LOWEST POSITION WITH SIDE RAILS UP X2, CALL LIGHT IS WITHIN REACH.
[2019-04-05] MEDS: ATORVASTATIN 20 MG TAB PO SCH (20:55)
[2019-04-06] MEDS: MORPHINE SULF INJ 2 MG/ML SYRINGE 1ML IV PRN (00:17)
[2019-04-06] MEDS: SODIUM CHLORIDE 0.9% 1,000 ML IV SCH ×2 (03:19→06:10)
--- NOTE | 2019-04-06 03:20 | NUR ---
MORNING HYGIENE CARE PATIENT NOTED TO BE HAVING A BLOODY NOSE. FULL BED BATH PERFORMED USING CHG WIPES. GOWN CHANGED, PARTIAL LINEN CHANGE. PATIENT REPOSITIONED FOR COMFORT. TOLERATED IT WELL.
--- NOTE | 2019-04-06 04:45 | NUR ---
[facility] RECEIVED A CALL FROM [facility] WITH THE UNIT ASSIGNMENT. PATIENT GOING TO 7200. TO CALL UNIT AT [phone] FOR ROOM NUMBER AND REPORT. ACCEPTING PHYSICIAN: DR. VILLANUEVA
--- NOTE | 2019-04-06 04:54 | NUR ---
[facility] ARRANGED TRANSPORTATION. ETA 2HRS.
--- NOTE | 2019-04-06 05:21 | NUR ---
REPORT GIVEN TO ANTON CASTILLO AT [facility] PATIENT WILL GO TO ROOM 5, BED 2.
--- NOTE | 2019-04-06 05:30 | NUR ---
CALLED DAUGHTER LINNEA INFORMED HER OF PATIENTS TRANSFER GAVE HER ROOM AND ROSA DEE VERBALIZED UNDERSTANDING.
[2019-04-06] MEDS: BUMETANIDE 2.5mg/10ml (0.25 mg/ml) INJ IV SCH (06:09)
[2019-04-06] MEDS: hydrALAZINE HCL 25 MG TAB PO SCH (06:09)
[2019-04-06] MEDS: ALBUTEROL SULF 2.5 MG/0.5ML(0.5%) NEB SOLN NEB SCH (06:14)
--- NOTE | 2019-04-06 06:14 | NUR ---
Respiratory note: TITRATED PT'S FIO2 TO 10L/M ON OXYMIZER. BIPAP NOT AT BEDSIDE. RN STATED PT WILL BE TRANSFERRED OUT TODAY. WILL CONTINUE TO MONITOR PT.
--- NOTE | 2019-04-06 06:15 | NUR ---
UP TO BSC WITH STANDBY ASSIST NO BM NOTED. SAFELY BACK TO BED.
--- NOTE | 2019-04-06 06:55 | NUR ---
END OF SHIFT PATIENT IS CALMLY LAYING IN BED AWAKE. AWAITING [facility] PICKUP. WILL GIVE REPORT AND ENDORSE CARE TO THE DAY SHIFT RN.
--- NOTE | 2019-04-06 07:30 | NUR ---
RECEIVED PATIENT SITTING UP IN BED STATES HE IS WAITING TO GO TO [facility], A/O TIMES 4, O2 AT 10L BY THE OXYMIZER, AND MAGUIRE TO GRAVITY, SALINE LOCK TO THE LFA 20G AND RAC 20G BOTH FLUSHED AND PATENT, DENIES PAIN AND SOB,
[2019-04-06 07:35] VITALS: BP 131/78
--- NOTE | 2019-04-06 08:30 | NUR ---
GAVE REPORT TO POLINA FROM [facility] PATIENT BEING TAKEN TO [facility]
--- NOTE | 2019-04-06 08:35 | NUR ---
report called to miriam zavaleta at [facility] that patient was leaving shortly
--- NOTE | 2019-04-06 08:40 | NUR ---
patient discharged on stretcher with [facility], states he has his phone ad all of his belongings
[2019-04-06] MEDS ORDERED: ALBUTEROL SULF 2.5 MG/0.5ML(0.5%) NEB SOLN ONE (14:35)
== END 2019-04-06 08:40 | disposition short-term general hospital (02) | DRG 286 ==
LOC: ER 11:11 → TELE 11:12 → DOU IN ICU 17:10
PROVIDERS: ADMIT Internal Medicine; ATTEND Family Medicine
PROC: 4A023N8 Measurement of Cardiac Sampling and Pressure, Bilateral, Percutaneous Approach (ICD-10-PCS; principal; 2019-04-04)
PROC: B2111ZZ Fluoroscopy of Multiple Coronary Arteries using Low Osmolar Contrast (ICD-10-PCS; 2019-04-04)
PROC: B2151ZZ Fluoroscopy of Left Heart using Low Osmolar Contrast (ICD-10-PCS; 2019-04-04)
PROC: 0W9B3ZZ Drainage of Left Pleural Cavity, Percutaneous Approach (ICD-10-PCS; 2019-04-05)
DX: I13.0 Hypertensive heart and chronic kidney disease with heart failure and stage 1 through stage 4 chronic kidney disease, or unspecified chronic kidney disease (principal); I50.43 Acute on chronic combined systolic (congestive) and diastolic (congestive) heart failure; N17.0 Acute kidney failure with tubular necrosis; J96.20 Acute and chronic respiratory failure, unspecified whether with hypoxia or hypercapnia; J18.1 Lobar pneumonia, unspecified organism; I31.3 Pericardial effusion (noninflammatory); J91.8 Pleural effusion in other conditions classified elsewhere; R00.1 Bradycardia, unspecified; E78.5 Hyperlipidemia, unspecified; I25.10 Atherosclerotic heart disease of native coronary artery without angina pectoris; I35.0 Nonrheumatic aortic (valve) stenosis; K80.20 Calculus of gallbladder without cholecystitis without obstruction; D70.9 Neutropenia, unspecified; N18.3 Chronic kidney disease, stage 3 (moderate); D69.6 Thrombocytopenia, unspecified; I42.9 Cardiomyopathy, unspecified; I45.9 Conduction disorder, unspecified; I71.4 Abdominal aortic aneurysm, without rupture; I73.9 Peripheral vascular disease, unspecified; D63.8 Anemia in other chronic diseases classified elsewhere; E78.00 Pure hypercholesterolemia, unspecified; R33.9 Retention of urine, unspecified; Z66 Do not resuscitate; J44.9 Chronic obstructive pulmonary disease, unspecified; N20.0 Calculus of kidney; I25.2 Old myocardial infarction; Z95.5 Presence of coronary angioplasty implant and graft; Z99.81 Dependence on supplemental oxygen; Z80.0 Family history of malignant neoplasm of digestive organs; Z82.41 Family history of sudden cardiac death; Z82.49 Family history of ischemic heart disease and other diseases of the circulatory system; Z95.2 Presence of prosthetic heart valve
CPT/HCPCS: 10022; 36415; 36600; 71045; 74176; 76775; 76942; 80048; 80053; 80162; 81001; 82306; 82550; 82570; 82607; 82728; 82746; 82805; 82962; 83010; 83540; 83550; 83735; 83880; 83970; 83986; 84100; 84156; 84300; 84443; 84484; 85025; 85045; 85610; 85730; 86038; 86706; 86803; 86850; 86880; 86900; 86901; 87040; 87070; 87077; 87081; 87186; 87205; 87340; 89051; 93005; 93306; 94640; G0378; J0696; J1756; J2250; Q9967

== ENCOUNTER 2019-05-04 18:42 | Inpatient (IN) | payer OTHER, MEDICAID ==
[~2019-05-04] VITALS: Ht 180.3 cm; Wt 63.5 kg
[~2019-05-04 18:42] MED LIST changes: -AMLO10TA13 PO; -ASPI-231 PO; +BENA5TAB5 PO; -FUR20T PO; -LEVO500T21 PO; -METO-158 PO; +METO25TA62 PO; -POTA10TA51 PO; +TAMS0.4C36 PO; -VENL75TA PO
[2019-05-04 21:08] LABS: Hemoglobin 9.5 g/dL (13.5-17.5); Mean Corpuscular Hemoglobin 32.4 pg (28.0-32.0)
[2019-05-04 21:10] LABS: Hematocrit 28.7 % (41.0-53.0); Mean Corpuscular Hgb Conc. 33.1 g/dL (32.0-36.0); Mean Corpuscular Volume 97.9 fL (80.0-100.0); Platelet Count (auto) 155 10^3/uL (140-450); Red Blood Cells 2.93 10^6/uL (4.5-5.90); Red Cell Distribution Width 18.4 % (11.8-14.3)
[2019-05-04 21:18] LABS: BUN/Creatinine Ratio 30.2; Calcium 8.7 mg/dL (8.5-10.1); Potassium 4.6 mmol/L (3.5-5.1)
[2019-05-04 21:22] LABS: Bilirubin, Total 1.1 mg/dL (0.2-1.0)
[2019-05-04 21:26] LABS: White Blood Cell 1.9 10^3/uL (4.4-10.8)
[2019-05-04 21:27] LABS: Band Neutrophils % (manual) 0; Basophils % (manual) 0 (0.0-2.0); Blast Cells 0; Metamyelocytes % 0; Myelocytes % 0; Promyelocytes % 0; Reactive Lymphocytes 0
[2019-05-04 22:38] LABS: Eosinophils % (manual) 11 (0-7); Lymphocytes % (manual) 31 (10.0-50.0); Monocytes % (manual) 7 (0-12)
[2019-05-05] MEDS ORDERED: IPRATROPIUM BROM 0.5 MG/2.5ML INH SOL NEB ONE (05:00)
[2019-05-05] MEDS ORDERED: ALBUTEROL SULF 2.5 MG/0.5ML(0.5%) NEB SOLN NEB ONE (05:00)
[2019-05-05] MEDS ORDERED: FUROSEMIDE 20 MG/2 ML VIAL IV ONE (05:00)
[2019-05-05 13:55] LABS: INR 1.09 (0.9-1.15)
[2019-05-05] MEDS ORDERED: MORPHINE SULFATE 4 MG/ML SYR/VIAL IV PRN (15:15)
[2019-05-05] MEDS ORDERED: ACETAMINOPHEN 500 MG TAB PO PRN (15:15)
[2019-05-05] MEDS ORDERED: HYDROcodone-ACET 5/325MG TAB PO PRN (15:15)
[2019-05-05] MEDS ORDERED: PROMETHAZINE HCL 25 MG/ML 1ML IV PRN (15:15)
[2019-05-05] MEDS ORDERED: MORPHINE SULF INJ 2 MG/ML SYRINGE 1ML IV PRN (15:15)
[2019-05-05] MEDS ORDERED: LACTULOSE 20Gm/30ML SOLN PO PRN (15:15)
[2019-05-05] MEDS ORDERED: ALBUTEROL SULF 2.5 MG/0.5ML(0.5%) NEB SOLN NEB PRN (15:15)
[2019-05-05] MEDS ORDERED: NITROGLYCERIN 0.4 MG SL TAB SL PRN (15:15)
[2019-05-05] MEDS ORDERED: LEVOFLOXACIN 500MG 100 ML IV ONE (15:27)
[2019-05-05 15:49] VITALS: BP 145/83
[2019-05-05 17:30] VITALS: BP 143/98
--- NOTE | 2019-05-05 17:45 | NUR ---
Telemetry admit from ER: KAVITA TERRELL admitted to Telemetry unit after SBAR received. Patient oriented to SERGEY CLAUDIO, RN primary RN, unit, room, bed, and unit policies regarding patient care and visiting hours. Patient now on continuous telemetry monitoring, tele box # [id number]. Patient placed on bedside oxygen, weighed by bedscale and encouraged to call if they need something. All questions and concerns addressed, patient verbalized understanding. Will continue to monitor Q1hr.
--- NOTE | 2019-05-05 18:00 | NUR ---
WOUND PHOTOS TAKEN OF LEFT LOWER EXTREMITY.
[2019-05-05] MEDS: TAMSULOSIN HYDROCHLORIDE 0.4 MG CAP PO SCH (18:12)
--- NOTE | 2019-05-05 18:39 | NUR ---
MRSA swab collected and sent to lab.
--- NOTE | 2019-05-05 19:15 | NUR ---
Opening Shift Note Assumed care of patient, awake and alert. No S/S of distress/SOB or pain. Instructed on POC and to call for assist PRN, will continue to monitor for changes Q1hr and PRN. Bed in low position and call light within reach. bed alarm on
[2019-05-05] MEDS: IPRATROPIUM BROM 0.5 MG/2.5ML INH SOL NEB SCH (19:24)
[2019-05-05] MEDS: ALBUTEROL SULF 2.5 MG/0.5ML(0.5%) NEB SOLN NEB SCH (19:24)
[2019-05-05 20:00] VITALS: BP 132/95
[2019-05-05 21:38] VITALS: BP 132/95
[2019-05-05] MEDS: APIXABAN 2.5 MG TAB PO SCH (22:00)
[2019-05-05] MEDS ORDERED: CARVEDILOL 3.125 MG TAB PO SCH (22:00)
--- NOTE | 2019-05-05 22:00 | NUR ---
patient jamie Flowers educated patient on the importance of taking the medication and side effects of medications. Patient verbalized understanding. Per patient" on Tuesday I have a procedure to get fluid removed, they told me to not take my blood thinner medications or I am going to bleed out. I am not taking that medication."
[2019-05-05] MEDS: SODIUM CHLOR 0.9% PF (SALINE LOCK) 10ML VIAL/SYR IV SCH (22:02)
[2019-05-06] MEDS: IPRATROPIUM BROM 0.5 MG/2.5ML INH SOL NEB SCH ×4 (01:07→19:50)
[2019-05-06] MEDS: ALBUTEROL SULF 2.5 MG/0.5ML(0.5%) NEB SOLN NEB SCH ×4 (01:07→19:50)
[2019-05-06 05:10] VITALS: BP 130/86
[2019-05-06] MEDS: SODIUM CHLOR 0.9% PF (SALINE LOCK) 10ML VIAL/SYR IV SCH ×3 (05:58→22:00)
--- NOTE | 2019-05-06 07:08 | NUR ---
ENTERED PTS ROOM TO CLEAN BOARD AND WRITE MY NAME. INTRODUCED MYSELF TO PT, RIGHT AWAY HE ASKED FOR A CHEERY COKE. I TOLD THE PT THAT THE KITCHEN WILL NOT SEND THOSE UP TO PATIENTS THEY ARE ONLY IN THE VENDING MACHINES. PT TOLD ME TO GO GET HIM ONE, AND I EXPLAIN WHY I COULD NOT DUE TO IT BEING AGAINST POLICY.PT SAID WLL THEN IF I GET MY SCOOTER HERE FROM HOME ILL GO ACROSS THE STRE[address] AND GET ONE MYSELF. I TOLD THE PATIENT IF HE DID THAT IT WOULD BE CONSIDERED A ELOPEMENT. 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 RN KAVITA JEFFREY.
--- NOTE | 2019-05-06 07:21 | NUR ---
REPORT GIVEN TO MARCE CASTILLO
--- NOTE | 2019-05-06 07:30 | NUR ---
Opening Shift Note Assumed care of patient, awake and alert. No S/S of distress/SOB or pain on 4 LPM via nasal cannula. Instructed on POC and to call for assist PRN, will continue to monitor for changes Q1hr and PRN. Bed in low and locked position, rails up x2, no-slip socks on. Patient stated that he is anticipating a thoracentesis so he is requesting to hold all anticoagulation.
[2019-05-06 09:00] VITALS: BP 133/90
[2019-05-06] MEDS ORDERED: METOPROLOL SUCCINATE XL 50 MG TAB PO SCH (10:00)
[2019-05-06] MEDS ORDERED: ENOXAPARIN SOD 40 MG/0.4 ML SYRINGE SC SCH (10:00)
[2019-05-06] MEDS: CLOPIDOGREL BISULFATE 75 MG TAB PO SCH (10:00)
[2019-05-06] MEDS ORDERED: BENAZEPRIL HCL 10 MG TAB PO SCH (10:00)
[2019-05-06] MEDS ORDERED: ENALAPRIL MALEATE 2.5 MG TAB PO SCH (10:00)
[2019-05-06] MEDS: ASPirin 81 mg TAB PO SCH (10:00)
[2019-05-06] MEDS: APIXABAN 2.5 MG TAB PO SCH ×2 (10:00→22:00)
[2019-05-06] MEDS: PANTOPRAZOLE 40 MG TAB PO SCH (10:09)
[2019-05-06] MEDS: POTASSIUM CHL 20 Meq TABLET PO SCH (10:09)
[2019-05-06] MEDS: ATORVASTATIN 20 MG TAB PO SCH (10:09)
[2019-05-06] MEDS: FUROSEMIDE 40 MG/4 ML VIAL IV SCH (10:10)
[2019-05-06] MEDS ORDERED: BENA5TAB5 PO (10:22)
[2019-05-06] MEDS ORDERED: METO25TA62 PO (10:22)
--- NOTE | 2019-05-06 11:30 | NUR ---
DR Eloina ANTUNEZ AT BEDSIDE ORDERS FOR RADIOLOGY CONSULT, THORACENTESIS FOR TUESDAY. CONTINUE HOLD ANTICOAGULATION.
[2019-05-06 12:49] VITALS: BP 153/95
[2019-05-06] MEDS: BENAZEPRIL HCL 10 MG TAB PO SCH (14:15)
[2019-05-06] MEDS: METOPROLOL SUCCINATE XL 50 MG TAB PO SCH (14:16)
--- NOTE | 2019-05-06 14:19 | NUR ---
HOME OXYGEN AND PLEUREX DRAIN SPOKE TO DAUGHTER LINNEA, SHE WAS UPDATED ON PLAN OF CARE, STATED THAT THIS PATIENT NO LONGER HAS HOME OXYGEN, PRIOR TO ADMISSION HE WAS USING "[facility]" FOR HOME OXYGEN AND WILL NEED IT UPON DISCHARGE. LINNEA ALSO STATED THAT DR HAYS, THE PATIENTS PRIMARY MD, HAD RECOMMENDED THAT THIS PATIENT HAVE A PLEUREX DRAIN PLACED FOR CHRONIC LEFT PLEURAL EFFUSIONS, DAUGHTER STATED THAT IT SEEMS TO REOCCUR EVERY 5 DAYS AND THAT THE DRAIN WOULD HELP ALLEVIATE SOME FREQUENT ADMISSIONS. STATED THAT IT WOULD NEED TO BE AN MD ORDER FOR DRAIN PLACEMENT AND THAT RADIOLOGY WOULD BE THE DEPARTMENT THAT COMPLETES IT. DISCUSSED THAT WE COULD MENTION IT TO PRIMARY MD TOMORROW WELL WITH RADIOLOGIST AND POSSIBLY HAVE IT DONE OUTPATIENT IF IT IS WARRANTED. FAMILY VERBALIZES UNDERSTANDING. WILL CONTINUE TO MONITOR PATIENT.
[2019-05-06] MEDS ORDERED: LEVOFLOXACIN 500MG 100 ML IV SCH (15:00)
[2019-05-06 17:06] VITALS: BP 136/92
[2019-05-06] MEDS: TAMSULOSIN HYDROCHLORIDE 0.4 MG CAP PO SCH (18:08)
--- NOTE | 2019-05-06 19:20 | NUR ---
Opening Shift Note Assumed care of patient, awake and alert. No S/S of distress/SOB or pain. Instructed on POC and to call for assist PRN, will continue to monitor for changes Q1hr and PRN. Bed in low position and call light within reach
[2019-05-06 21:34] VITALS: BP 123/79
[2019-05-07] VITALS (9 sets, daily range): BP systolic 100–136; BP diastolic 59–88
[2019-05-07] MEDS: IPRATROPIUM BROM 0.5 MG/2.5ML INH SOL NEB SCH ×4 (01:00→19:47)
[2019-05-07] MEDS: ALBUTEROL SULF 2.5 MG/0.5ML(0.5%) NEB SOLN NEB SCH ×4 (01:00→19:47)
[2019-05-07] MEDS: SODIUM CHLOR 0.9% PF (SALINE LOCK) 10ML VIAL/SYR IV SCH ×3 (05:45→21:54)
[2019-05-07 05:58] LABS: Calcium 8.2 mg/dL (8.5-10.1); Potassium 4.4 mmol/L (3.5-5.1)
[2019-05-07 05:59] LABS: BUN/Creatinine Ratio 27.1
--- NOTE | 2019-05-07 07:45 | NUR ---
Report given to karen zavaleta
--- NOTE | 2019-05-07 08:02 | NUR ---
OPENING SHIFT NOTE: PATIENT RESTING IN BED. NO SIGNS OF DISTRESS NOTED. UPDATED ON PLAN OF CARE. BED IN LOWEST LOCKED POSITION. BREATHING EVEN AND UNLABORED. ASSISTED PATIENT WITH ROOM PHONE TO CALL FAMILY WITH PERSONAL CELL PHONE NOT WORKING. UPDATED CARE BOARD. CALL LIGHT WITHIN REACH. WILL CONTINUE TO MONITOR.
--- NOTE | 2019-05-07 09:00 | NUR ---
PATIENT TAKEN DOWN TO RADIOLOGY.
--- NOTE | 2019-05-07 09:15 | NUR ---
PT IN ULTRASOUND FOR A THORACENTESIS WITH DR SERRANO. VS 116/77-98-16-98%. 0925: 118/70-89-17-98. FINISHED WITH PROCEDURE. 1450 ML OF FLUID REMOVED. NOT SENT TO LAB. POST CXR DONE.
--- NOTE | 2019-05-07 09:39 | NUR ---
PATIENT BACK FROM RADIOLOGY, AMBULATED TO BED FROM WHEELCHAIR, EVEN AND UNLABORED RESPIRATIONS NOTED. VS TAKEN: 126/69 MMHG 99BPM O2 SAT 97% 3L NC.
--- NOTE | 2019-05-07 09:50 | NUR ---
DR. Elda ANTUNEZ AT BEDSIDE.
[2019-05-07] MEDS: APIXABAN 2.5 MG TAB PO SCH ×2 (09:59→21:15)
[2019-05-07] MEDS: CLOPIDOGREL BISULFATE 75 MG TAB PO SCH (09:59)
[2019-05-07] MEDS: ASPirin 81 mg TAB PO SCH (09:59)
[2019-05-07] MEDS: METOPROLOL SUCCINATE XL 50 MG TAB PO SCH (10:05)
[2019-05-07] MEDS: BENAZEPRIL HCL 10 MG TAB PO SCH (10:06)
[2019-05-07] MEDS: FUROSEMIDE 40 MG/4 ML VIAL IV SCH (10:06)
[2019-05-07] MEDS: PANTOPRAZOLE 40 MG TAB PO SCH (10:06)
[2019-05-07] MEDS: POTASSIUM CHL 20 Meq TABLET PO SCH (10:06)
[2019-05-07] MEDS: ATORVASTATIN 20 MG TAB PO SCH (10:07)
[2019-05-07 11:36] LABS: Basophils # (auto) 0 uL; Basophils % (auto) 0.8 % (0.0-2.0); Eosinophils # (auto) 0.2 uL; Eosinophils % (auto) 9.8 % (0.0-7.0); Lymphocytes # (auto) 0.7 uL; Mean Corpuscular Hemoglobin 32.9 pg (28.0-32.0); Mean Corpuscular Hgb Conc. 33.4 g/dL (32.0-36.0); Mean Corpuscular Volume 98.5 fL (80.0-100.0); Monocytes # (auto) 0.1 uL; Monocytes % (auto) 3.3 % (0.0-12.0); Neutrophils # (auto) 1.3 uL; Neutrophils % (auto) 56.1 % (37.0-80.0); Nucleated Red Blood Cells % 0.1 %; Platelet Count (auto) 146 10^3/uL (140-450); Red Blood Cells 2.13 10^6/uL (4.5-5.90); Red Cell Distribution Width 18.1 % (11.8-14.3); White Blood Cell 2.4 10^3/uL (4.4-10.8)
--- NOTE | 2019-05-07 11:41 | NUR ---
CRITICAL LAB CALLED FOR HGB 7.0. MD. Elda ANTUNEZ MADE AWARE, ORDERS FOR 1 UNIT PRBC'S TO FOLLOW.
[2019-05-07 11:55] LABS: Albumin 2.3 g/dL (3.4-5.0); BUN/Creatinine Ratio 24.5; Bilirubin, Total 1.2 mg/dL (0.2-1.0); Calcium 7.8 mg/dL (8.5-10.1); Potassium 4.4 mmol/L (3.5-5.1); Total Protein 5.4 g/dL (6.4-8.2)
--- NOTE | 2019-05-07 12:19 | NUR ---
PT REFUSED 1200 BREATHING TX. PT STATES HE IS NAUSEATED. RN GIOVANNI AWARE OF REFUSAL WELL. PT AWARE OT HAVE RT PAGED IF HE CHANGES HIS MIND OR SOB OCCURS.
--- NOTE | 2019-05-07 12:20 | NUR ---
WOUND CARE NOTE: WOUND CONSULT ORDERED FOR PATIENT. WOUND PHOTO TAKEN UPON ADMIT, BY BEDSIDE NURSE FOR REFERENCE. PATIENT HAS FELTON SCORE OF 21. HE CAN SELF TURN/REPOSITION SELF. PATIENT IS NTOED TO HAVE LINEAL EXCORIATIONS TO THE LEFT LOWER EXTREMITY. NO OPEN OR DRAINING WOUNDS NOTED. LEFT WOUND OPEN TO AIR. NO OTHER SKIN INTEGRITY ISSUES NOTED. NO WOUND CARE MONITORING IS NEEDED.
--- NOTE | 2019-05-07 15:50 | NUR ---
VS TAKEN PRIOR TO BLOOD TRANSFUSION: 104/71 MMHG, 110 BPM, 98.1 DEGREES FAHRENHEIT, 94% ON 3L NC, RESPIRATIONS 18 NO C/O PAIN.
--- NOTE | 2019-05-07 16:08 | NUR ---
TRANSFUSION INITIATED, CAROLINE CASTILLO TO DOUBLE VERIFY.
--- NOTE | 2019-05-07 16:23 | NUR ---
15 MINUTE INTO TRANSFUSION VITALS: BP 113/76 MMHG, 109 BPM, 98.7 DEGREES FAHRENHEIT, 99% O2 ON 3L NC, RESP RATE 18, NO C/O PAIN.
[2019-05-07] MEDS: TAMSULOSIN HYDROCHLORIDE 0.4 MG CAP PO SCH (18:00)
--- NOTE | 2019-05-07 18:25 | NUR ---
PHARMACY MADE THIS RN AWARE OF EPOGEN AVAILABILITY IN 4,000 UNITS. GRICELDA ORDERING , ORDERED 6,000 UNITS. RECEIVED CALL BACK FROM . GRICELDA, WILL FOLLOW NEW ORDERS FOR 4,000 UNITS..
--- NOTE | 2019-05-07 18:52 | NUR ---
CLOSING SHIFT NOTE: PATIENT RESTING IN BED. PATIENT IS BREATHING EVEN AND UNLABORED. EDUCATED ON FALL PRECAUTIONS. PATIENT VERBALIZED UNDERSTANDING. PATIENTS POST BLOOD TRANSFUSION VS DOCUMENTED IN THE TRANSFUSION RECORD. BED IN LOWEST LOCKED POSITION. WILL ENDORSE CARE TO NOC RN.
--- NOTE | 2019-05-07 19:22 | NUR ---
ENDORSED CARE TO JCARLOS PETERSON RN. Addendum: 05/07/19 at 1925 by MARIA ESTHER RIVERA RN RN MISTAKEN ENTRY.
--- NOTE | 2019-05-07 19:23 | NUR ---
ENDORSED CARE TO MICHELLE PETERSON RN.
--- NOTE | 2019-05-07 20:00 | NUR ---
Opening Shift Note Assumed care of patient, awake and alert. No S/S of distress/SOB or pain. Instructed on POC and to call for assist PRN, will continue to monitor for changes Q1hr and PRN.
[2019-05-07] MEDS: FERROUS SULFATE 300 MG/5 ML ORAL LIQ PO SCH (21:54)
[2019-05-08] VITALS (11 sets, daily range): BP systolic 98–128; BP diastolic 70–83
[2019-05-08] MEDS: ALBUTEROL SULF 2.5 MG/0.5ML(0.5%) NEB SOLN NEB SCH ×5 (01:05→18:59)
[2019-05-08] MEDS: IPRATROPIUM BROM 0.5 MG/2.5ML INH SOL NEB SCH ×5 (01:05→18:59)
--- NOTE | 2019-05-08 01:06 | NUR ---
RT NOTE: PT REFUSED MED NEB TX @ THIS TIME. PT STATED HE HASNT GOTTEN MUCH SLEEP IN THE LAST COUPLE OF DAYS AND JUST WANTS TO REST. SPO2 95% ON 4L NC, HR 107. NO SOB OR DISTRESS NOTED. RN MADE AWARE.
[2019-05-08] MEDS: TEMAZEPAM 15 MG CAP PO PRN (01:59)
--- NOTE | 2019-05-08 02:07 | NUR ---
RT NOTE: RT CALLED TO PT'S ROOM FOR BREATHING TX. UPON ENTERING, PT STATED HE COULDN'T GET HIS BREATHING UNDER CONTROL. RR 25-30, SPO2 95%, HR 114. PT STATED THAT HE WAS NOT GETTING ONE OF HIS DEPRESSIONS MEDS ANYMORE AND THAT IT WAS STRESSING HIM OUT. BREATHING TX GIVEN, PT APPEARED LESS DISTRESSED POST TX. ANNA MARTINEZ MADE AWARE.
[2019-05-08] MEDS: FERROUS SULFATE 300 MG/5 ML ORAL LIQ PO SCH ×3 (05:29→21:31)
[2019-05-08] MEDS: SODIUM CHLOR 0.9% PF (SALINE LOCK) 10ML VIAL/SYR IV SCH ×3 (05:29→23:51)
[2019-05-08 06:05] LABS: Basophils # (auto) 0 uL; Basophils % (auto) 0.7 % (0.0-2.0); Eosinophils # (auto) 0.1 uL; Hematocrit 19.5 % (41.0-53.0); Monocytes # (auto) 0.1 uL; Neutrophils # (auto) 1.1 uL; Platelet Count (auto) 107 10^3/uL (140-450); Red Blood Cells 2.08 10^6/uL (4.5-5.90)
[2019-05-08 06:08] LABS: Eosinophils % (auto) 6.7 % (0.0-7.0); Lymphocytes # (auto) 0.4 uL; Lymphocytes % (auto) 24.6 % (10.0-50.0); Mean Corpuscular Hemoglobin 32.3 pg (28.0-32.0); Mean Corpuscular Hgb Conc. 34.4 g/dL (32.0-36.0); Monocytes % (auto) 4.7 % (0.0-12.0); Neutrophils % (auto) 63.3 % (37.0-80.0); Red Cell Distribution Width 19.9 % (11.8-14.3)
[2019-05-08 06:13] LABS: White Blood Cell 1.8 10^3/uL (4.4-10.8)
[2019-05-08 06:15] LABS: Hemoglobin 6.7 g/dL (13.5-17.5)
--- NOTE | 2019-05-08 06:18 | NUR ---
Called/paged Akash Mitchell called re:patients hgb.is 6.7, WBC is 1.8 . Waiting for call back. Continue care.
--- NOTE | 2019-05-08 06:54 | NUR ---
returned call Akash Lyle returned call, updated on patient status and reason for call, orders received to transfuse one unit of PRBC, Continue care.
--- NOTE | 2019-05-08 07:10 | NUR ---
Report given to Federico Miranda , patient is resting no distress.
--- NOTE | 2019-05-08 07:24 | NUR ---
OPENING SHIFT NOTE: PATIENT RESTING IN BED, AWAKE NO SIGNS OF DISTRESS. BREATHING EVEN AND UNLABORED. PATIENT C/O FEELING SOB RELATED TO ANXIETY. PATIENT REQUESTING MEDICATION TO HELP ANXIOUS FEELING. EDUCATED PATIENT ON LOW HGB, AND PLAN FOR ANOTHER UNIT OF BLOOD TODAY. UPDATED ON PLAN OF CARE, AND ACTIVELY LISTENED TO PATIENT. WILL ADVOCATE FOR ANXIETY MED, WHEN MD ROUNDS. CALL LIGHT WITHIN REACH. BED IN LOWEST LOCKED POSITION. WILL CONTINUE TO MONITOR.
[2019-05-08] MEDS: ATORVASTATIN 20 MG TAB PO SCH (08:44)
[2019-05-08] MEDS: ASPirin 81 mg TAB PO SCH (08:48)
[2019-05-08] MEDS: APIXABAN 2.5 MG TAB PO SCH ×2 (08:48→21:25)
[2019-05-08] MEDS: BENAZEPRIL HCL 10 MG TAB PO SCH (08:48)
[2019-05-08] MEDS: METOPROLOL SUCCINATE XL 50 MG TAB PO SCH (08:49)
[2019-05-08] MEDS: FUROSEMIDE 40 MG/4 ML VIAL IV SCH (08:50)
[2019-05-08] MEDS: FOLIC ACID 1 MG TAB PO SCH (08:50)
[2019-05-08] MEDS: POTASSIUM CHL 20 Meq TABLET PO SCH (08:50)
[2019-05-08] MEDS: PANTOPRAZOLE 40 MG TAB PO SCH (08:53)
[2019-05-08] MEDS: CLOPIDOGREL BISULFATE 75 MG TAB PO SCH (08:55)
[2019-05-08] MEDS: LEVOFLOXACIN 750MG 150 ML IV SCH (09:04)
[2019-05-08] MEDS ORDERED: EPOETIN ALFA SC SCH (10:00)
[2019-05-08] MEDS ORDERED: VENLAFAXINE HCL 37.5mg XR cap PO ONE (10:15)
[2019-05-08] MEDS ORDERED: ALPRAZolam 0.5 MG TAB PO PRN (10:15)
[2019-05-08] MEDS: EPOETIN ALFA 4,000 UNIT/ML VL SC SCH (10:30)
--- NOTE | 2019-05-08 12:03 | NUR ---
Respiratory note: SCHEDULED MEDNEB TX NOT GIVEN, PT REFUSING AT THIS TIME, SAYS HE WILL WAIT UNTIL NEXT TREATMENT. HR 113, RR 24, POX 97% ON 5L NC. BREATH SOUNDS CLEAR THROUGHOUT. NO S/S OF RESPIRATORY DISTRESS. ADVISED PT TO CALL FOR RT IF HE CHANGES HIS MIND.
--- NOTE | 2019-05-08 16:36 | NUR ---
assessment Patient is a 79 year old male who is alert and oriented. Prior to admission patient lived home with friends and functioned with assistance. Patient informed me he has home 02, and a scooter for home use. Patient informed me his PCP is Dr Murillo. Prior to admission patient was on service with [facility]. Patient informed me Dr Santos wants his to change hospice to [facility]. I informed patient that it was his choice to stay with [facility] or to change to [facility]. Patient informed me he would think about it and let me know. I informed patient he has a right to privacy. Patient does not have a POA and advanced directive. I have offered patient information on POA and advanced directives. I informed the patient the advantages and benefits of having an Advanced Directive. Patient verbalized understanding and agreed to discharge plan for transfer. Addendum: 05/08/19 at 1638 by Nicky WILLAMS Amended: Links added.
[2019-05-08] MEDS: TAMSULOSIN HYDROCHLORIDE 0.4 MG CAP PO SCH (18:04)
--- NOTE | 2019-05-08 18:48 | NUR ---
CLOSING SHIFT NOTE: PATIENT RESTING IN BED. PATIENT STATED HE FEELS ANXIOUS. WILL MEDICATE ORDERED. VITAL SIGNS WNL POST BLOOD TRANSFUSION. BED IN LOWEST LOCKED POSITION. CALL LIGHT WITHIN REACH. WILL ENDORSE CARE TO NOC RN.
--- NOTE | 2019-05-08 19:25 | NUR ---
ENDORSED CARE TO MICHELLE CASTILLO.
--- NOTE | 2019-05-08 20:00 | NUR ---
Opening Shift Note Assumed care of patient, awake and alert. No S/S of distress/SOB or pain. Instructed on POC and to call for assist PRN, will continue to monitor for changes Q1hr and PRN.Watching television.
--- NOTE | 2019-05-09 00:38 | NUR ---
PT CHECKED. PT IS SLEEPING. PT REQUESTED NOT TO BE WOKEN UP FOR SCHEDULED MED NEB IF ASLEEP. PT IS SLEEPING WITH NO ACUTE DISTRESS NOTED.
[2019-05-09] MEDS: FERROUS SULFATE 300 MG/5 ML ORAL LIQ PO SCH ×3 (05:26→22:11)
[2019-05-09 05:55] VITALS: BP 121/83
[2019-05-09] MEDS: ALBUTEROL SULF 2.5 MG/0.5ML(0.5%) NEB SOLN NEB SCH ×5 (06:23→23:20)
[2019-05-09] MEDS: IPRATROPIUM BROM 0.5 MG/2.5ML INH SOL NEB SCH ×5 (06:23→23:20)
--- NOTE | 2019-05-09 07:30 | NUR ---
Report given to Federico Morgan, patient is resting no distress.
--- NOTE | 2019-05-09 07:42 | NUR ---
Opening Shift Note: Assumed care of patient. Patient currently sleeping. No S/S of distress/SOB or pain noted at this time. Bed in lowest locked position, side rails up x 2, call light within reach. Patient will be instructed on POC, will continue to monitor for changes Q1hr and PRN.
[2019-05-09 08:40] LABS: Basophils # (auto) 0 uL; Basophils % (auto) 0.4 % (0.0-2.0); Eosinophils # (auto) 0 uL; Lymphocytes # (auto) 0.2 uL; Lymphocytes % (auto) 11.6 % (10.0-50.0); Monocytes # (auto) 0.1 uL
[2019-05-09 08:43] LABS: Eosinophils % (auto) 2.1 % (0.0-7.0); Hematocrit 25.8 % (41.0-53.0); Hemoglobin 9.1 g/dL (13.5-17.5); Mean Corpuscular Hemoglobin 32.1 pg (28.0-32.0); Mean Corpuscular Hgb Conc. 35.1 g/dL (32.0-36.0); Mean Corpuscular Volume 91.2 fL (80.0-100.0); Monocytes % (auto) 3.7 % (0.0-12.0); Neutrophils # (auto) 1.7 uL; Neutrophils % (auto) 82.2 % (37.0-80.0); Nucleated Red Blood Cells % 0.1 %; Platelet Count (auto) 112 10^3/uL (140-450); Red Blood Cells 2.83 10^6/uL (4.5-5.90); Red Cell Distribution Width 17.9 % (11.8-14.3)
[2019-05-09 08:56] VITALS: BP 127/84
[2019-05-09] MEDS: FUROSEMIDE 40 MG/4 ML VIAL IV SCH (09:53)
[2019-05-09] MEDS: VENLAFAXINE HCL 37.5mg XR cap PO SCH (09:54)
[2019-05-09] MEDS: PANTOPRAZOLE 40 MG TAB PO SCH (09:54)
[2019-05-09] MEDS: CLOPIDOGREL BISULFATE 75 MG TAB PO SCH (09:55)
[2019-05-09] MEDS: BENAZEPRIL HCL 10 MG TAB PO SCH (09:55)
[2019-05-09] MEDS: POTASSIUM CHL 20 Meq TABLET PO SCH (09:56)
[2019-05-09] MEDS: APIXABAN 2.5 MG TAB PO SCH ×2 (09:56→22:13)
[2019-05-09] MEDS: METOPROLOL SUCCINATE XL 50 MG TAB PO SCH (09:57)
[2019-05-09] MEDS: ATORVASTATIN 20 MG TAB PO SCH (09:58)
[2019-05-09] MEDS: FOLIC ACID 1 MG TAB PO SCH (09:58)
[2019-05-09] MEDS: ASPirin 81 mg TAB PO SCH (09:58)
--- NOTE | 2019-05-09 11:20 | NUR ---
DR ANTUNEZ AT BEDSIDE. DISCUSSED POC WITH PATIENT. PATIENT VERBALLY AGREED. ORDERS PLACED BY DR ANTUNEZ FOR SOCIAL SERVICE REGARDING HOME HEALTH UPON DISCHARGE. PT EVAL ORDERED.
--- NOTE | 2019-05-09 11:26 | NUR ---
Respiratory note: PT REFUSED HIS SCHEDULED MED NEB TX. NO SOB NOTED ON 4L NC. POX 96%, HR 102, RR 18.
--- NOTE | 2019-05-09 11:41 | NUR ---
NUTRITION ASSESSMENT NOTES Please refer to link notes of nutrition screen form filed under the intervention section of the plan of care for further details. Est. Needs: 1900 kcal to 2200 kcal (30-35 kcal/kgBW), 51 gms to 64 gms pro (0.8-1.0 gms/kgBW). Will continue to monitor pertinent labs and reassess nutrient need prn Thank you. Addendum: 05/09/19 at [address] Amended: Links added.
--- NOTE | 2019-05-09 12:17 | NUR ---
D/C Planning Per SS consult for home health physical therapy and medication management. Advised ANNA Bradford to informed Dr. Santos a Pysical therapy evaluation is needed to proceed with consult.
--- NOTE | 2019-05-09 12:54 | NUR ---
BLOOD TRANSFUSION: DOCUMENTED BLOOD TRANSFUSION IN INTERVENTIONS ON WRONG PT. THIS PATIENT IS NOT TO RECEIVE A BLOOD TRANSFUSION TODAY.
[2019-05-09 13:00] VITALS: BP 134/84
[2019-05-09] MEDS: SODIUM CHLOR 0.9% PF (SALINE LOCK) 10ML VIAL/SYR IV SCH ×3 (14:25→22:13)
--- NOTE | 2019-05-09 16:11 | NUR ---
re-assessment I informed patient he has a consult for home health. Patient informed me he wants to stay with [facility]. I informed Monique AC1. I also informed Suzette CASTILLO. Addendum: 05/09/19 at 1613 by Nicky WILLAMS Amended: Links added.
[2019-05-09 16:59] VITALS: BP 155/85
--- NOTE | 2019-05-09 17:07 | NUR ---
IV insertion: IV access obtained, via clean sterile technique by inserting 20 gauge catheter at left forearm after 1 attempt. IV secured properly. No trauma to site. Patient tolerated well.
--- NOTE | 2019-05-09 17:10 | NUR ---
IV removal: Right forearm IV DC'd with clean sterile technique, catheter fully intact. Pressure dressing applied to site. Patient tolerated well.
[2019-05-09] MEDS: TAMSULOSIN HYDROCHLORIDE 0.4 MG CAP PO SCH (17:52)
--- NOTE | 2019-05-09 18:54 | NUR ---
Respiratory note: AT BEDSIDE FOR MED AGGIE TX. PT REFUSING AT THIS TIME, PTS EXCITED TO SEE FAMILY MEMBER AT BEDSIDE. POX [phone] ON 4LPM NC. NO SOS OF DISTRESS NOTED WILL CONTINUE TO MONITOR. RT NAME AND PAGER ASSIGNMENT WRITTEN ON PTS ROOM BOARD.
--- NOTE | 2019-05-09 19:30 | NUR ---
Opening Shift Note Assumed care of patient, awake and alert oriented x4. No S/S of distress/SOB or pain noted. Family at the bedside. Bed is in lowest locked position with bed rails up x2 and call light is within reach of the patient. Instructed on POC and to call for assist PRN.
[2019-05-09 21:39] VITALS: BP 132/89
--- NOTE | 2019-05-09 23:23 | NUR ---
Respiratory note: AT BEDSIDE FOR MED NEB TX PT REFUSING TX WOULD LIKE TO BE LEFT TO SLEEP. WILL CONTINUE TO MONITOR.
[2019-05-10 05:30] LABS: Hematocrit 25.8 % (41.0-53.0); Mean Corpuscular Hemoglobin 31.5 pg (28.0-32.0); Mean Corpuscular Hgb Conc. 34.3 g/dL (32.0-36.0)
[2019-05-10 05:32] LABS: Hemoglobin 8.9 g/dL (13.5-17.5); Platelet Count (auto) 119 10^3/uL (140-450); Red Blood Cells 2.81 10^6/uL (4.5-5.90); Red Cell Distribution Width 17.8 % (11.8-14.3)
[2019-05-10 05:34] VITALS: BP 121/85
[2019-05-10 05:44] LABS: White Blood Cell 1.9 10^3/uL (4.4-10.8)
--- NOTE | 2019-05-10 05:45 | NUR ---
CRITICAL LAB: PATIENT HAD A CRITICAL LAB VALUE OF 1.9 WBC AT THIS TIME. TO [facility]PITAL[facility].
[2019-05-10 05:46] LABS: Basophils % (manual) 0 (0.0-2.0); Blast Cells 0; Metamyelocytes % 0; Myelocytes % 0; Promyelocytes % 0; Reactive Lymphocytes 0
[2019-05-10 05:47] LABS: Calcium 8.7 mg/dL (8.5-10.1); Potassium 4.7 mmol/L (3.5-5.1)
[2019-05-10 05:49] LABS: BUN/Creatinine Ratio 27.2
--- NOTE | 2019-05-10 05:49 | NUR ---
HOSPITALIST CALLED BACK: NOTIFIED HOSPITALIST ANITA ABOUT PATIENTS CRITICAL WBC LEVEL OF 1.9. NO NEW ORDERS GIVEN AT THIS TIME.
[2019-05-10] MEDS: FERROUS SULFATE 300 MG/5 ML ORAL LIQ PO SCH ×3 (05:56→20:28)
[2019-05-10] MEDS: SODIUM CHLOR 0.9% PF (SALINE LOCK) 10ML VIAL/SYR IV SCH ×3 (05:57→20:28)
[2019-05-10] MEDS: ALBUTEROL SULF 2.5 MG/0.5ML(0.5%) NEB SOLN NEB SCH ×3 (06:46→19:33)
[2019-05-10] MEDS: IPRATROPIUM BROM 0.5 MG/2.5ML INH SOL NEB SCH ×3 (06:46→19:33)
--- NOTE | 2019-05-10 08:00 | NUR ---
Pt resting in bed, no distress noted. Pt reports no pain at this time. Call light in reach, bed in lowest locked position, side rails up x2. Will continue to monitor.
[2019-05-10 08:39] LABS: Band Neutrophils % (manual) 8; Eosinophils % (manual) 6 (0-7); Lymphocytes % (manual) 20 (10.0-50.0); Monocytes % (manual) 4 (0-12)
[2019-05-10 09:00] VITALS: BP 146/100
[2019-05-10] MEDS: LEVOFLOXACIN 750MG 150 ML IV SCH (10:08)
[2019-05-10] MEDS: ATORVASTATIN 20 MG TAB PO SCH (10:09)
[2019-05-10] MEDS: PANTOPRAZOLE 40 MG TAB PO SCH (10:09)
[2019-05-10] MEDS: FUROSEMIDE 40 MG/4 ML VIAL IV SCH (10:09)
[2019-05-10] MEDS: BENAZEPRIL HCL 10 MG TAB PO SCH (10:10)
[2019-05-10] MEDS: METOPROLOL SUCCINATE XL 50 MG TAB PO SCH (10:11)
[2019-05-10] MEDS: POTASSIUM CHL 20 Meq TABLET PO SCH (10:12)
[2019-05-10] MEDS: CLOPIDOGREL BISULFATE 75 MG TAB PO SCH (10:12)
[2019-05-10] MEDS: VENLAFAXINE HCL 37.5mg XR cap PO SCH (10:13)
[2019-05-10] MEDS: ASPirin 81 mg TAB PO SCH (10:14)
[2019-05-10] MEDS: APIXABAN 2.5 MG TAB PO SCH ×2 (10:14→20:27)
[2019-05-10] MEDS: FOLIC ACID 1 MG TAB PO SCH (10:15)
[2019-05-10] MEDS: EPOETIN ALFA 4,000 UNIT/ML VL SC SCH (10:32)
--- NOTE | 2019-05-10 12:06 | NUR ---
DR ANTUNEZ AND GINNY CHICAS SAW PATIENT AND DAUGHTER AND DISCUSSED PT OPTION FOR HOME HEALTH AND HOSPICE. NEW ORDERS FOR ABG ON ROOM AIR AND POSSIBLE DC TOMORROW. GINNY REPORTS SHE WILL HAVE 2 REPRESENTATIVES FROM 2 DIFFERENT HOSPICE COMPANIES COME TALK TO PATIENT TODAY. NOTIFIED DR ANTUNEZ OF RR 24 AND HR 103 PER HOSPITAL [facility] POLICY. NO NEW ORDERS. WILL CONTINUE TO MONITOR.
[2019-05-10 13:00] VITALS: BP 139/92
--- NOTE | 2019-05-10 13:45 | NUR ---
ABG done. Po2 42.8. Dr Santos notified, new orders for ss consult for home 02 at 4 L per minute.
--- NOTE | 2019-05-10 16:04 | NUR ---
Received call from Monique WILLAMS. she reports Isabela is asking to [facility] consult for home 02, as patient is going home on hospice.
[2019-05-10 17:00] VITALS: BP 116/85
[2019-05-10] MEDS: TAMSULOSIN HYDROCHLORIDE 0.4 MG CAP PO SCH (17:33)
--- NOTE | 2019-05-10 19:40 | NUR ---
Opening Shift Note Assumed care of patient, awake and alert, oriented x 4, follows direction. On oxygen at 2L via NC with even and unlabored respirations, no S/S of distress/SOB or pain. Patient turns independently in bed. Bed low locked position with side rails up x 2 and call light within reach, bed alarm on. Instructed on POC and to callfor assist PRN, will continue to monitor for changes Q1hr and PRN.
[2019-05-10 23:21] VITALS: BP 111/75
[2019-05-11] MEDS: IPRATROPIUM BROM 0.5 MG/2.5ML INH SOL NEB SCH ×4 (00:22→19:30)
[2019-05-11] MEDS: ALBUTEROL SULF 2.5 MG/0.5ML(0.5%) NEB SOLN NEB SCH ×4 (00:22→19:31)
[2019-05-11 05:23] VITALS: BP 113/71
[2019-05-11] MEDS: SODIUM CHLOR 0.9% PF (SALINE LOCK) 10ML VIAL/SYR IV SCH ×3 (06:27→22:08)
[2019-05-11] MEDS: FERROUS SULFATE 300 MG/5 ML ORAL LIQ PO SCH ×3 (06:27→22:08)
--- NOTE | 2019-05-11 06:57 | NUR ---
Closing Note patient resting in bed with oxygen on at 2L via NC, even and unlabored respirations, no s/s of distress. Bed low locked position with side rails up x 2 and call light within reach, bed alarm on. Endorsed care to day shift RN.
[2019-05-11 09:00] VITALS: BP 113/71
[2019-05-11] MEDS: FUROSEMIDE 40 MG/4 ML VIAL IV SCH (09:36)
[2019-05-11] MEDS: ATORVASTATIN 20 MG TAB PO SCH (09:36)
[2019-05-11] MEDS: POTASSIUM CHL 20 Meq TABLET PO SCH (09:37)
[2019-05-11] MEDS: ASPirin 81 mg TAB PO SCH (09:37)
[2019-05-11] MEDS: CLOPIDOGREL BISULFATE 75 MG TAB PO SCH (09:37)
[2019-05-11] MEDS: FOLIC ACID 1 MG TAB PO SCH (09:38)
[2019-05-11] MEDS: VENLAFAXINE HCL 37.5mg XR cap PO SCH (09:38)
[2019-05-11] MEDS: APIXABAN 2.5 MG TAB PO SCH (09:38)
[2019-05-11] MEDS: PANTOPRAZOLE 40 MG TAB PO SCH (09:38)
[2019-05-11] MEDS: BENAZEPRIL HCL 10 MG TAB PO SCH (09:40)
[2019-05-11] MEDS: METOPROLOL SUCCINATE XL 50 MG TAB PO SCH (09:40)
--- NOTE | 2019-05-11 10:36 | NUR ---
DR ANTUNEZ AND GINNY CHICAS SAW PATIENT AND DAUGHTER AT BEDSIDE AND DISCUSSED POC. NEW ORDERS FOR LEFT SIDE PLEURAVAC AND THEN PATIENT IS TO DC ON HOSPICE TODAY. PATIENT AND DAUGHTER AGREE, WILL CONTINUE TO MONITOR.
--- NOTE | 2019-05-11 10:42 | NUR ---
PATIENT NOTIFIED NOT TO EAT LUNCH OR HAVE ANYTHING BY MOUTH. PT AWARE. RADIOLOGY CALLED TO CLARIFY ORDER. TOLD RADIOLOGY NURSE PT IS TO DC TODAY ON HOSPICE, SO THE PATIENT NEEDS THE TUBE TO GO HOME WITH AND HOSPICE WILL FOLLOW UP.
--- NOTE | 2019-05-11 10:51 | NUR ---
DOLORES FROM RADIOLOGY CALLED. SHE REPORTS SHE WILL SPEAK WITH DR SERRANO, BUT IS UNSURE IF THEY CAN DO CHEST TUBE PATIENT HAS ALREADY HAD PLAVIX AND ELIQUIS THIS MORNING. SHE REPORTS SHE WILL CALL BACK AFTER SHE SPEAKS WITH DR SERRANO.
[2019-05-11 11:00] LABS: INR 1.11 (0.9-1.15); Partial Thromboplastin Time 31.9 sec (23.64-32.05)
--- NOTE | 2019-05-11 11:34 | NUR ---
DR ANTUNEZ NOTIFIED RADIOLOGY MAY NOT BE ABLE TO DO PROCEDURE. AWARE.
--- NOTE | 2019-05-11 12:34 | NUR ---
Respiratory note: SCHEDULED MEDNEB TX NOT GIVEN, PT REFUSING AT THIS TIME. HR 84, RR 20, POX 98% ON 3L NC. BREATH SOUNDS CLEAR/DIMINISHED. NO S/S OF RESPIRATORY DISTRESS. PT SAYS HE WILL WAIT UNTIL THE NEXT ONE. ADVISED PT TO CALL FOR RT IF HE CHANGES HIS MIND. STREET ENGINEER AT BEDSIDE AND ALSO AWARE TO CALL.
[2019-05-11 13:00] VITALS: BP 112/79
--- NOTE | 2019-05-11 13:36 | NUR ---
[address] Eloina Santos regarding the plan of care for this patient-he said radiology would not place pleurex catheter today due to patient being on Eliquis and Plavix. He is stopping the medications-pleurex catheter to be placed on Tuesday and patient to discharge home on Hospice after.
--- NOTE | 2019-05-11 13:46 | NUR ---
DR HARMONY WILKINS MD REPORTS RADIOLOGY IS UNABLE TO PLACE PLEURX TODAY BLOOD THINNERS WHERE ALREADY GIVEN, AND TO HOLD DISCHARGE UNTIL TUESDAY WHEN PLEUREX CAN BE PLACED. NOTIFIED THERON WILLAMS AND SHE REPORTS SHE WILL NOTIFY [facility]. NOTIFIED PT, PT IRRITATED AND REPORTS HE WANTED TO GO HOME TODAY, BUT WILL STAY. NEW ORDERS TO DC PLAVIX, ASPIRIN AND ELIQUIS, AND NPO ORDER.
--- NOTE | 2019-05-11 13:54 | NUR ---
PT REQUESTS PUNEET, REQUEST FAXED TO DIETARY.
[2019-05-11 17:00] VITALS: BP 116/75
[2019-05-11] MEDS: TAMSULOSIN HYDROCHLORIDE 0.4 MG CAP PO SCH (18:25)
--- NOTE | 2019-05-11 18:49 | NUR ---
D/C Planning Per SS consult for Hospice. Per Nasra from [facility] they are unable to accept Pt. Informed SS Nicky. Per Nicky Pt daughter Zena requested [facility]. Choice letter was given to Pt daughter Zena. Contacted [facility] Ph:) Fax:) faxed medical records. Per Irina from [facility] Pt referral has been received and Pt has been accepted. Contacted General transport Ph:) spoke to [facility]. Advised [facility] to arrange transportation between 14:30-15:30 via [place] with oxygen. Advised ANNA Serrato however, ANNA Serrato stated put a hold on Pt d/c till Tuesday due to Pt needing a procedure done. Followed up call to [facility] and General transport advised Irina from [facility] and Akshat from general transport there will be a hold on d/c. Advised ROD Dunn and SS Nicky.
--- NOTE | 2019-05-11 19:20 | NUR ---
Opening Shift Note Received report from Aide blue RN. Assumed care of patient, awake and alert, resting in bed on 3L O2 NC, saturating at 93%. No S/S of distress/SOB or pain. Instructed on POC and to call for assist PRN, will continue to monitor for changes Q1hr and PRN. Bed placed in lowest position, bed alarm turned on, and call light within reach.
--- NOTE | 2019-05-11 19:47 | NUR ---
THERON REQUESTED DC ORDER BE CHANGED TO TUESDAY. DC ORDER CANCELED THIS AFTERNOON PER DR ANTUNEZ, PT IS DISCHARGING TUESDAY. DC ORDER NO LONGER SHOWS, SO IT IS UNABLE TO BE EDITED.
[2019-05-11] MEDS: TEMAZEPAM 15 MG CAP PO PRN (22:13)
[2019-05-12] VITALS (7 sets, daily range): BP systolic 110–134; BP diastolic 74–89
[2019-05-12] MEDS: IPRATROPIUM BROM 0.5 MG/2.5ML INH SOL NEB SCH ×4 (00:38→19:09)
[2019-05-12] MEDS: ALBUTEROL SULF 2.5 MG/0.5ML(0.5%) NEB SOLN NEB SCH ×4 (00:38→19:09)
--- NOTE | 2019-05-12 00:38 | NUR ---
RT NOTE PT ASKED NOT TO BE WOKEN FOR THIS SCHEDULED TX IF SLEEPING. PT SLEEPING. NO SIGNS OF RESP DISTRESS NOTED BY RT. PT AWARE THAT HE CAN HAVE RT PAGED IF NEEDED.
[2019-05-12] MEDS: SODIUM CHLOR 0.9% PF (SALINE LOCK) 10ML VIAL/SYR IV SCH ×3 (05:44→22:00)
[2019-05-12] MEDS: FERROUS SULFATE 300 MG/5 ML ORAL LIQ PO SCH ×3 (05:57→22:36)
--- NOTE | 2019-05-12 07:00 | NUR ---
ROUNDS PATIENT IS RESTING IN BED WITH EYES CLOSED, NO DISTRESS NOTED AND PATIENT DENIES PAIN.
--- NOTE | 2019-05-12 08:00 | NUR ---
OPENING SHIFT NOTE ASSUMED CARE OF PATIENT. PATIENT IS AWAKE AND ALERT. NO SIGNS OF DISTRESS NOTED. INSTRUCTED ON POC AND TO CALL FOR HELP PRN. BED IS IN LOWEST POSITION. SIDE RAILS UP X2. WILL CONTINUE TO MONITOR.
[2019-05-12] MEDS: LEVOFLOXACIN 750MG 150 ML IV SCH (09:21)
[2019-05-12] MEDS: PANTOPRAZOLE 40 MG TAB PO SCH (09:30)
[2019-05-12] MEDS: EPOETIN ALFA 4,000 UNIT/ML VL SC SCH (09:30)
[2019-05-12] MEDS: FUROSEMIDE 40 MG/4 ML VIAL IV SCH (09:30)
[2019-05-12] MEDS: ATORVASTATIN 20 MG TAB PO SCH (09:31)
[2019-05-12] MEDS: POTASSIUM CHL 20 Meq TABLET PO SCH (09:31)
[2019-05-12] MEDS: VENLAFAXINE HCL 37.5mg XR cap PO SCH (09:31)
[2019-05-12] MEDS: FOLIC ACID 1 MG TAB PO SCH (09:31)
[2019-05-12] MEDS: BENAZEPRIL HCL 10 MG TAB PO SCH (09:35)
[2019-05-12] MEDS: METOPROLOL SUCCINATE XL 50 MG TAB PO SCH (09:36)
--- NOTE | 2019-05-12 11:11 | NUR ---
Nutrition Follow-up Notes Wt.: 63.5 KG Pt was sleeping with no family by bedside. per records pt with CHF improving. pt with no distress noted currently on 2 gm na diet with adequate PO of 100% x 3 per RN doc Est. Needs: 1900 kcal to 2200 kcal (30-35 kcal/kgBW), 51 gms to 64 gms pro (0.8-1.0 gms/kgBW). Will continue to monitor pertinent labs and reassess nutrient need prn Labs: BUN 65 H, CREAT 2.39 H, GLU 114 H, ALB 2.3 L. 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 PES: Increased nutrient needs r/t acute/chronic medical condition aeb 81% IBW, BMI 19.5 kg/m2, cachectic, severe hypoalbuminemia, poor appetite, <75% consumed meals. Altered nutrition related lab values r/t current/chronic medical condition aeb hyperglycemia, hyperchloremia, elev. renal labs,LFTs, hyperbilirubinemia, hypocalcemia and severe hypoalbuminemia Will continue to monitor PO intake, pertinent labs, skin status and weight trends. F/u in 3-5 days. Rec: 1.) Consider Soft Cardiac: 2 gms Na, Low Chol, Low Fat diet with Ensure Enlive 1 carton TID. 2.) If Albumin continues trending down with improved renal labs, consider Prostat 1 pkt BID. 3.) Continue close supervision wiht meals. 4.) Refer to RD for further nutrition educ. and weight monitoring upon discharge. 5.) Continue current plan of care.
[2019-05-12] MEDS: TAMSULOSIN HYDROCHLORIDE 0.4 MG CAP PO SCH (17:11)
--- NOTE | 2019-05-12 19:30 | NUR ---
Opening Shift Note Assumed care of patient, awake and alert x4. No S/S of distress/SOB or pain. Neighbor at bedside. Instructed on POC and to call for assistance PRN, will continue to monitor for changes Q1hr and PRN. Pt pending pleural vac placement on Tuesday, then discharge with hospice.
[2019-05-12] MEDS: TEMAZEPAM 15 MG CAP PO PRN (22:34)
--- NOTE | 2019-05-13 00:09 | NUR ---
PT REFUSED MED NEB TX AT THIS TIME. PT DENIES ANY RESPIRATORY DISTRESS. NO SHORTNESS OF BREATH NOTED. WILL CONTINUE WITH NEXT SCHEDULED TX.
[2019-05-13 05:02] VITALS: BP 112/71
[2019-05-13] MEDS: FERROUS SULFATE 300 MG/5 ML ORAL LIQ PO SCH ×3 (06:19→22:04)
[2019-05-13] MEDS: SODIUM CHLOR 0.9% PF (SALINE LOCK) 10ML VIAL/SYR IV SCH ×3 (06:19→22:06)
[2019-05-13] MEDS: ALBUTEROL SULF 2.5 MG/0.5ML(0.5%) NEB SOLN NEB SCH ×5 (07:03→19:19)
[2019-05-13] MEDS: IPRATROPIUM BROM 0.5 MG/2.5ML INH SOL NEB SCH ×5 (07:03→19:19)
--- NOTE | 2019-05-13 07:05 | NUR ---
Respiratory note: PATIENT REFUSED 0600 MED-NEB AT THIS TIME. HE ASKED TO BE SEEN ON THE NEXT TREATMENT TIME HE WANTED TO CONTINUE SLEEPING. HE WAS IN NO ACUTE RESPIRATORY DISTRESS AT TIME OF HIS REFUSAL. HE WAS INFORMED THAT HIS NEXT TX TIME WOULD NOT BE UNTIL 1200, HE WAS IN AGREEMENT WITH THIS.
--- NOTE | 2019-05-13 08:17 | NUR ---
OPENING SHIFT NOTE ASSUMED CARE OF PATIENT. PATIENT AWAKE AND ALERT. NO SOB OR SIGNS OF DISTRESS NOTED. INSTRUCTED ON POC AND TO CALL FOR ASSISTANCE PRN. BED IN LOWEST POSITION WITH SIDE RAILS UP X2. WILL CONTINUE TO MONITOR.
[2019-05-13 09:09] VITALS: BP 102/80
[2019-05-13] MEDS: FUROSEMIDE 40 MG/4 ML VIAL IV SCH (09:59)
[2019-05-13] MEDS: POTASSIUM CHL 20 Meq TABLET PO SCH (10:02)
[2019-05-13] MEDS: VENLAFAXINE HCL 37.5mg XR cap PO SCH (10:02)
[2019-05-13] MEDS: ATORVASTATIN 20 MG TAB PO SCH (10:02)
[2019-05-13] MEDS: PANTOPRAZOLE 40 MG TAB PO SCH (10:02)
[2019-05-13] MEDS: FOLIC ACID 1 MG TAB PO SCH (10:02)
[2019-05-13] MEDS: BENAZEPRIL HCL 10 MG TAB PO SCH (10:04)
[2019-05-13] MEDS: METOPROLOL SUCCINATE XL 50 MG TAB PO SCH (10:04)
[2019-05-13 10:07] VITALS: BP 135/81
--- NOTE | 2019-05-13 11:45 | NUR ---
Respiratory note: PATIENT REFUSED 1200 MED-NEB AT THIS TIME. HE ASKED TO BE SEEN ON THE NEXT TREATMENT TIME HE WANTED TO CONTINUE SLEEPING. HE WAS IN NO ACUTE RESPIRATORY DISTRESS AT TIME OF HIS REFUSAL. HE WAS INFORMED THAT HIS NEXT TX TIME WOULD NOT BE UNTIL 1800, HE WAS IN AGREEMENT WITH THIS. SPO2 96% 2LPM N/C
[2019-05-13 12:14] VITALS: BP 110/82
[2019-05-13 16:41] VITALS: BP 120/76
[2019-05-13] MEDS: TAMSULOSIN HYDROCHLORIDE 0.4 MG CAP PO SCH (17:27)
--- NOTE | 2019-05-13 19:35 | NUR ---
Opening Shift Note Report received from day shift RN. Assumed care of patient. Patient resting in bed and alert x4. No S/S of distress/SOB noted and denies pain at this time. Bed locked and left in the lowest position. Call light left within reach. Instructed on POC and to call for assist PRN, will continue to monitor for changes Q1hr and PRN.
[2019-05-13] MEDS: TEMAZEPAM 15 MG CAP PO PRN (22:04)
[2019-05-13 22:05] VITALS: BP 110/80
--- NOTE | 2019-05-14 00:18 | NUR ---
Respiratory note: PT REFUSING BREATHING TX AT THIS TIME AND STATES HE WANTS TO SLEEP. NO RESP DISTRESS NOTED. PT REMAINS ON NC3L, SPO2 96%, HR 102, RR 18. WILL CONTINUE TO MONITOR PT T/O NOC SHIFT.
[2019-05-14 05:04] VITALS: BP 96/52
[2019-05-14] MEDS: FERROUS SULFATE 300 MG/5 ML ORAL LIQ PO SCH ×2 (06:00→15:10)
[2019-05-14] MEDS: SODIUM CHLOR 0.9% PF (SALINE LOCK) 10ML VIAL/SYR IV SCH ×2 (06:10→15:10)
[2019-05-14] MEDS: IPRATROPIUM BROM 0.5 MG/2.5ML INH SOL NEB SCH ×3 (07:18→11:58)
[2019-05-14] MEDS: ALBUTEROL SULF 2.5 MG/0.5ML(0.5%) NEB SOLN NEB SCH ×3 (07:18→11:58)
--- NOTE | 2019-05-14 07:30 | NUR ---
Opening Shift Note RECEIVED REPORT FROM RESOURCE RN. Assumed care of patient, awake and alert. PATIENT ON OXYGEN AT 3 LPM VIA NASAL CANNULA WITH no S/S of distress/SOB or pain. BED IN LOWEST, LOCKED POSITION WITH SIDERAILS UP x2 AND CALL LIGHT WITHIN REACH. Instructed on POC and to call for assist PRN, will continue to monitor for changes Q1hr and PRN.
[2019-05-14 08:59] VITALS: BP 110/74
[2019-05-14] MEDS: LEVOFLOXACIN 750MG 150 ML IV SCH (09:27)
[2019-05-14] MEDS: FUROSEMIDE 40 MG/4 ML VIAL IV SCH (09:51)
[2019-05-14] MEDS: VENLAFAXINE HCL 37.5mg XR cap PO SCH (09:52)
[2019-05-14] MEDS: FOLIC ACID 1 MG TAB PO SCH (09:52)
[2019-05-14] MEDS: PANTOPRAZOLE 40 MG TAB PO SCH (09:52)
[2019-05-14] MEDS: ATORVASTATIN 20 MG TAB PO SCH (09:52)
[2019-05-14] MEDS: POTASSIUM CHL 20 Meq TABLET PO SCH (09:53)
[2019-05-14] MEDS: METOPROLOL SUCCINATE XL 50 MG TAB PO SCH (09:53)
[2019-05-14] MEDS: BENAZEPRIL HCL 10 MG TAB PO SCH (09:54)
[2019-05-14] MEDS ORDERED: MIDAZOLAM HCL 1MG/1ML-2 ML VIAL IV ONE (10:45)
[2019-05-14] MEDS ORDERED: fentaNYL CITRATE 100 MCG/2 ML VL IV ONE (10:45)
[2019-05-14] MEDS ORDERED: LIDOCAINE 2%HCL (LOCAL ANESTH.) INJ 20ML MDV ONE (11:37)
[2019-05-14] MEDS ORDERED: NALOXONE HCL 1MG/ML 2ML SYRINGE ONE (11:54)
[2019-05-14 13:29] VITALS: BP 110/74
--- NOTE | 2019-05-14 14:40 | NUR ---
Pleurex drain done as per Dr. Cast's orders, obtain 2000 ml of bloody fluid, v/s prior to draining first bottle 109/83, 97, 94%, v/s after first bottle 112/79, 81, 95%, v/s after second bottle 114/73, 98, 92%. Pt tolerated well, radiology nurse informed and bed side nurse informed.
--- NOTE | 2019-05-14 15:54 | NUR ---
DISCHARGE WOUND PHOTOGRAPH TAKEN AND PAPERWORK PLACED IN WOUND CARE FOLDER.
--- NOTE | 2019-05-14 16:36 | NUR ---
Discharge instructions given as ordered. Encourage to follow up with PMD as instructed. All questions and concerns addressed. Patient verbalized understanding. Medication reconciliation form completed and copy given to patient. IV removed with catheter intact, pressure dressing applied. Telemetry unit returned to ICU. Patient taken to [facility] via wheelchair with all personal belongings, accompanied by TRANSPORT staff and family member. No distress noted at time of departure.
--- NOTE | 2019-05-16 08:34 | NUR ---
Late entry for form regarding Medicare rights for 05.14.19. Upon encounter to present form for signature, patient was at a procedure, and I was unable to obtain his signature for his medicare rights upon discharge.
== END 2019-05-14 16:19 | disposition hospice, home (50) | DRG 291 ==
LOC: ER 18:49 → TELE 18:50 → TELE-WESTW 05-05 17:25
PROVIDERS: ADMIT Internal Medicine; ATTEND Family Medicine
PROC: 0W9B3ZZ Drainage of Left Pleural Cavity, Percutaneous Approach (ICD-10-PCS; principal; 2019-05-07)
PROC: 30233N1 Transfusion of Nonautologous Red Blood Cells into Peripheral Vein, Percutaneous Approach (ICD-10-PCS; 2019-05-07)
PROC: 0W9B3ZZ Drainage of Left Pleural Cavity, Percutaneous Approach (ICD-10-PCS; 2019-05-14)
DX: I13.0 Hypertensive heart and chronic kidney disease with heart failure and stage 1 through stage 4 chronic kidney disease, or unspecified chronic kidney disease (principal); I50.43 Acute on chronic combined systolic (congestive) and diastolic (congestive) heart failure; J18.9 Pneumonia, unspecified organism; J96.20 Acute and chronic respiratory failure, unspecified whether with hypoxia or hypercapnia; N17.0 Acute kidney failure with tubular necrosis; J96.10 Chronic respiratory failure, unspecified whether with hypoxia or hypercapnia; N18.4 Chronic kidney disease, stage 4 (severe); E44.0 Moderate protein-calorie malnutrition; J44.0 Chronic obstructive pulmonary disease with (acute) lower respiratory infection; J91.8 Pleural effusion in other conditions classified elsewhere; J84.10 Pulmonary fibrosis, unspecified; F32.9 Major depressive disorder, single episode, unspecified; D63.8 Anemia in other chronic diseases classified elsewhere; F41.9 Anxiety disorder, unspecified; I25.5 Ischemic cardiomyopathy; Z51.5 Encounter for palliative care; I71.9 Aortic aneurysm of unspecified site, without rupture; Z66 Do not resuscitate; D72.819 Decreased white blood cell count, unspecified; E78.5 Hyperlipidemia, unspecified; I25.10 Atherosclerotic heart disease of native coronary artery without angina pectoris; I35.0 Nonrheumatic aortic (valve) stenosis; I73.9 Peripheral vascular disease, unspecified; J44.9 Chronic obstructive pulmonary disease, unspecified; Z95.5 Presence of coronary angioplasty implant and graft; Z99.81 Dependence on supplemental oxygen; I25.2 Old myocardial infarction; Z80.0 Family history of malignant neoplasm of digestive organs; Z82.49 Family history of ischemic heart disease and other diseases of the circulatory system
CPT/HCPCS: 10022; 32555; 36415; 36430; 36600; 71045; 76604; 76942; 77002; 80048; 80053; 82805; 83735; 83880; 84484; 85007; 85025; 85027; 85610; 85730; 86850; 86900; 86901; 86920; 87070; 87081; 87205; 93005; 94640; 96365; 96375; 99291; G0378; J1956; J2250